=== PATIENT | female | born 1970 | race Caucasian/White ===

== ENCOUNTER 2017-09-15 05:27 | Emergency (ER) | payer BC ==
[2017-09-15 06:37] LABS: A TYPE INFLUENZA AG NEGATIVE (NEGATIVE); B INFLUENZA AG NEGATIVE (NEGATIVE)
[2017-09-15 06:43] LABS: HEMATOCRIT 40.1 % (36.0-47.0); HEMOGLOBIN 13.7 g/dL (12.0-15.5); MEAN CORPUSCULAR HEMOGLOBIN 29.2 pg (27.0-33.4); MEAN CORPUSCULAR HGB CONC 34.3 g/dL (32.0-36.0); MEAN CORPUSCULAR VOLUME 85 fl (80-97); PLATELET COUNT 153 10^3/uL (150-450); RED BLOOD COUNT 4.71 10^6/uL (3.72-5.28); RED CELL DISTRIBUTION WIDTH 12.7 % (11.5-14.0); WHITE BLOOD COUNT 9.5 10^3/uL (4.0-10.5)
[2017-09-15 06:58] LABS: ALANINE AMINOTRANSFERASE 48 U/L (9-52); ALKALINE PHOSPHATASE 106 U/L (38-126); ANION GAP 10 (5-19); ASPARTATE AMINO TRANSFERASE 31 U/L (14-36); BILIRUBIN,DIRECT 0.2 mg/dL (0.0-0.4); BILIRUBIN,TOTAL 0.2 mg/dL (0.2-1.3); BLOOD UREA NITROGEN 17 mg/dL (7-20); CALCIUM 9.7 mg/dL (8.4-10.2); CARBON DIOXIDE 23 mmol/L (22-30); CHLORIDE 102 mmol/L (98-107); GLUCOSE 274 mg/dL (75-110); SODIUM 135.2 mmol/L (137-145); TOTAL PROTEIN 6.9 g/dL (6.3-8.2)
[2017-09-15 07:03] LABS: ABSOLUTE LYMPHOCYTES# (MANUAL) 0.5 10^3/uL (0.5-4.7); ABSOLUTE MONOCYTES # (MANUAL) 0.6 10^3/uL (0.1-1.4); ABSOLUTE NEUTROPHILS# (MANUAL) 8.4 10^3/uL (1.7-8.2); BAND NEUTROPHILS % (MANUAL) 1 % (3-5); BASOPHILS % (MANUAL) 0 % (0-2); EOSINOPHILS % (MANUAL) 1 % (0-6); LYMPHOCYTES % (MANUAL) 5 % (13-45); MONOCYTES % (MANUAL) 6 % (3-13); SEGMENTED NEUTROPHILS % (MAN) 87 % (42-78); TOTAL CELLS COUNTED 100
[2017-09-15 07:04] LABS: RBC MORPHOLOGY COMMENT NORMO-CYTIC/CHROMIC
[2017-09-15] MEDS ORDERED: ACETAMINOPHEN 325 MG TABLET PO ONE (07:04)
[2017-09-15 07:05] LABS: PLATELET COMMENT ADEQUATE
--- NOTE | 2017-09-15 07:08 | ER Document Report ---
ED General - General Chief Complaint: Flu Symptoms Stated Complaint: FLU LIKE SYMPTOMS Time Seen by Provider: 09/15/17 06:50 Mode of Arrival: Ambulatory Information source: Patient TRAVEL OUTSIDE OF THE [place] IN LAST 30 DAYS: No - HPI Notes: Patient is a 46-year-old insulin-dependent diabetic presents emergency department with report of cough congestion which came on last evening nonproductive with associated fever. The patient denies any nausea, vomiting, diarrhea, neck stiffness. She reports generalized myalgias and mild headache. No skin rash or breakdown. Patient has not checked her blood sugar in several days. Patient does report some exposures to others with similar symptoms at work. - Related Data Allergies/Adverse Reactions: No Known Allergies Allergy (Verified 09/15/17 05:32) Past Medical History - General Information source: Patient - Social History Smoking Status: Current Every Day Smoker Chew tobacco use (# tins/day): No Frequency of alcohol use: None Drug Abuse: None Family History: None Patient has suicidal ideation: No Patient has homicidal ideation: No - Past Medical History Cardiac Medical History: Reports: Hx Hypercholesterolemia, Hx Hypertension Denies: Hx Congestive Heart Failure, Hx Heart Attack Pulmonary Medical History: Denies: Hx Tuberculosis Endocrine Medical History: Reports: Hx Diabetes Mellitus Type 2, Hx Hypothyroidism. Denies: Hx Graves' Disease, Hx Hyperthyroidism Renal/ Medical History: Denies: Hx Ovarian Cysts, Hx Peritoneal Dialysis, Hx Pelvic Inflammatory Disease Malignancy Medical History: Reports: Hx Cervical Cancer - precancerious cells removed. Denies: Hx Breast Cancer, Hx Ovarian Cancer GI Medical History: Reports: Hx Gastroesophageal Reflux Disease. Denies: Hx Crohn's Disease, Hx Hiatal Hernia, Hx Irritable Bowel, Hx Liver Failure, Hx Pancreatitis, Hx Ulcer Past Surgical History: Reports: Hx Cholecystectomy, Hx Gynecologic Surgery. Denies: Hx Colostomy, Hx Pacemaker - Immunizations Immunizations up to date: Yes Hx Diphtheria, Pertussis, Tetanus Vaccination: Yes Review of Systems - Review of Systems Notes: REVIEW OF SYSTEMS: CONSTITUTIONAL : No weight loss. EENT: Denies eye, ear, throat, or mouth pain or symptoms. Reports nasal congestion. Denies throat, tongue, or mouth swelling or difficulty swallowing. CARDIOVASCULAR: Denies chest pain. Denies palpitations or racing or irregular heart beat. Denies ankle edema. RESPIRATORY: Denies shortness of breath, difficulty breathing, or wheezing. GASTROINTESTINAL: Denies abdominal pain or distention. Denies nausea, vomiting , or diarrhea. Denies blood in vomitus, stools, or per rectum. Denies black, tarry stools. Denies constipation. GENITOURINARY: Denies difficulty urinating, painful urination, burning, frequency, blood in urine, or discharge. FEMALE GENITOURINARY: Denies vaginal bleeding, heavy or abnormal periods, irregular periods. Denies vaginal discharge or odor. MUSCULOSKELETAL: Denies back or neck pain or stiffness. Denies joint pain or swelling. SKIN: Denies rash, lesions or sores. HEMATOLOGIC : Denies easy bruising or bleeding. LYMPHATIC: Denies swollen, enlarged glands. NEUROLOGICAL: Denies confusion or altered mental status. Denies passing out or loss of consciousness. Denies dizziness or lightheadedness. Denies headache. Denies weakness or paralysis or loss of use of either side. Denies problems with gait or speech. Denies sensory loss, numbness, or tingling. Denies seizures. PSYCHIATRIC: Denies anxiety or stress. Denies depression, suicidal ideation, or homicidal ideation. ALL OTHER SYSTEMS REVIEWED AND NEGATIVE. Dictation was performed using [employer] voice recognition software Physical Exam - Vital signs Vitals: Temp Pulse Resp BP Pulse Ox 100.4 F 135 H 20 122/77 95 09/15/17 05:32 09/15/17 05:32 09/15/17 05:32 09/15/17 05:32 09/15/17 05:32 - Notes Notes: PHYSICAL EXAMINATION: GENERAL: Well-appearing, well-nourished and in no acute distress. HEAD: Atraumatic, normocephalic. EYES: Pupils equal round and reactive to light, extraocular movements intact, conjunctiva are normal. ENT: Nares patent with mild coryza. oropharynx clear without exudates. Moist mucous membranes. NECK: Normal range of motion, supple without lymphadenopathy LUNGS: Breath sounds clear to auscultation bilaterally and equal. No wheezes rales or rhonchi. HEART: Tachycardic rate regular of 115 with regular rhythm without murmurs, gallop or rub. ABDOMEN: Soft, nontender, nondistended abdomen. No guarding, no rebound. No masses appreciated. Female : deferred Musculoskeletal: Normal range of motion, no pitting or edema. No cyanosis. NEUROLOGICAL: Cranial nerves grossly intact. Normal speech, normal gait. Normal sensory, motor exams PSYCH: Normal mood, normal affect. SKIN: Warm, Dry, normal turgor, no rashes or lesions noted. Course - Re-evaluation Re-evalutation: 09/15/17 08:45 Patient was feeling better. Lab work showed no significant abnormality there was only mild hyperglycemia with blood sugar 274, but patient had no nausea or vomiting. No clinical suggestion for pneumonia and flu test is negative. Patient counseled about quitting smoking. Will place patient on Zithromax given possibility for bacterial etiology and progression to bronchitis given the smoking history. - Vital Signs Vital signs: Temp Pulse Resp BP Pulse Ox 100.4 F 135 H 20 122/77 95 09/15/17 05:32 09/15/17 05:32 09/15/17 05:32 09/15/17 05:32 09/15/17 05:32 - Laboratory Result Diagrams: 09/15/17 06:20 09/15/17 06:20 Laboratory results interpreted by me: 09/15/17 09/15/17 06:20 06:20 Seg Neuts % (Manual) 87 H Band Neutrophils % 1 L Lymphocytes % (Manual) 5 L Abs Neuts (Manual) 8.4 H Sodium 135.2 L Glucose 274 H Discharge - Discharge Clinical Impression: Bronchitis Fever Qualifiers: Fever type: unspecified Qualified Code(s): R50.9 - Fever, unspecified Condition: Stable Disposition: HOME, SELF-CARE Instructions: Fever ([facility]), Bronchitis ([facility]), Stop Smoking ([facility]) Additional Instructions: Drink plenty of fluids. Return to the emergency department case of high fever, difficulty breathing. Watch your blood sugars closely. Prescriptions: Azithromycin [Zithromax 250 mg Tablet] 250 mg PO ASDIR PRN #6 tablet PRN Reason: Guaifenesin/Pseudoephedrne HCl [Mucinex D ER Tablet] 1 each PO BIDP PRN #20 tab.er.12h PRN Reason: Forms: Return to Work
[2017-09-15 09:02] VITALS: BP 109/66
== END 2017-09-15 09:05 | disposition home or self-care (01) ==
LOC: ER 05:27
DX: J40 Bronchitis, not specified as acute or chronic (principal); E11.65 Type 2 diabetes mellitus with hyperglycemia; Z79.4 Long term (current) use of insulin; R05 Cough; R50.9 Fever, unspecified; M79.1 Myalgia; R51 Headache; F17.200 Nicotine dependence, unspecified, uncomplicated; I10 Essential (primary) hypertension; R00.0 Tachycardia, unspecified
CPT/HCPCS: 36415; 80053; 85025; 87804; 99284

== ENCOUNTER 2017-10-24 09:38 | Observation (INO) | payer BC ==
[2017-10-24 12:05] LABS: ABSOLUTE BASOPHILS # (AUTO) 0.1 10^3/uL (0.0-0.2); ABSOLUTE EOSINOPHILS # (AUTO) 0.2 10^3/uL (0.0-0.6); ABSOLUTE LYMPHOCYTES (AUTO) 2.8 10^3/uL (0.5-4.7); ABSOLUTE MONOCYTES (AUTO) 1.2 10^3/uL (0.1-1.4); ABSOLUTE NEUT (AUTO) 7.2 10^3/uL (1.7-8.2); BASOPHILS % (AUTO) 1.3 % (0-2); HEMATOCRIT 44.4 % (36.0-47.0); HEMOGLOBIN 15.2 g/dL (12.0-15.5); MEAN CORPUSCULAR HEMOGLOBIN 28.5 pg (27.0-33.4); MEAN CORPUSCULAR HGB CONC 34.3 g/dL (32.0-36.0); MEAN CORPUSCULAR VOLUME 83 fl (80-97); PLATELET COUNT 149 10^3/uL (150-450); RED BLOOD COUNT 5.34 10^6/uL (3.72-5.28); RED CELL DISTRIBUTION WIDTH 12.9 % (11.5-14.0); SEGMENTED NEUTROPHILS % (AUTO) 62.7 % (42-78); TOTAL CELLS COUNTED % (AUTO) 100 %; WHITE BLOOD COUNT 11.6 10^3/uL (4.0-10.5)
[2017-10-24 12:23] LABS: ANION GAP 9 (5-19); BLOOD UREA NITROGEN 11 mg/dL (7-20); CARBON DIOXIDE 24 mmol/L (22-30); CHLORIDE 104 mmol/L (98-107); GLUCOSE 210 mg/dL (75-110); POTASSIUM 3.6 mmol/L (3.6-5.0); SODIUM 137.3 mmol/L (137-145)
[2017-10-24 12:40] LABS: CREATINE KINASE MB < 0.22 ng/mL (<4.55); TROPONIN I < 0.012 ng/mL
--- NOTE | 2017-10-24 12:48 | RADIOLOGY REPORT (SQ) ---
EXAM DESCRIPTION: CHEST PA/LAT COMPLETED DATE/TIME: 10/24/2017 12:36 pm REASON FOR STUDY: chest pain COMPARISON: 08/04/2015. EXAM PARAMETERS: NUMBER OF VIEWS: two views TECHNIQUE: Digital Frontal and Lateral radiographic views of the chest acquired. RADIATION DOSE: NA LIMITATIONS: none FINDINGS: LUNGS AND PLEURA: No opacities, masses or pneumothorax. No pleural effusion. MEDIASTINUM AND HILAR STRUCTURES: No masses or contour abnormalities. HEART AND VASCULAR STRUCTURES: Heart normal size. No evidence for failure. BONES: No acute findings. HARDWARE: None in the chest. OTHER: No other significant finding. IMPRESSION: NO SIGNIFICANT RADIOGRAPHIC FINDING IN THE CHEST. TECHNICAL DOCUMENTATION: JOB ID: [id number] [employer]- All Rights Reserved Reading location - IP/workstation name: [facility]-[email or web address]
[2017-10-24] MEDS ORDERED: ASPIRIN 81 MG TABLET, ENT COATED PO ONE (14:00)
[2017-10-24] MEDS ORDERED: DEXTROSE 40% GEL 15 GM TUBE X 2 PO PRN (14:27)
[2017-10-24] MEDS ORDERED: DEXTROSE 50%-WATER SYRINGE 25 GM/50 ML DOSE IV PRN (14:27)
[2017-10-24] MEDS ORDERED: DEXTROSE 50%-WATER SYRINGE 12.5 GM/25 ML DOSE IV PRN (14:27)
[2017-10-24] MEDS ORDERED: GLUCAGON,HUMAN RECOMB 1 MG INJ IM PRN (14:27)
[2017-10-24] MEDS ORDERED: DEXTROSE 40% GEL 15 GM TUBE PO PRN (14:27)
[2017-10-24] MEDS ORDERED: NICOTINE 21 MG/24 HR PATCH.TD24 TD ONE (15:00)
[2017-10-24] MEDS: INSULIN LISPRO 100 UNIT/ML 3 ML VIAL SUBCUT PRN ×2 (15:22→18:50)
[2017-10-24] MEDS ORDERED: (PENDING PHARMACY ID) (Tapentadol Hcl [Nucynta] 75 MG) PO PRN (17:29)
[2017-10-24] MEDS ORDERED: CYANOCOBALAMIN (VITAMIN B-12) INJ 1000 MCG/1 ML VIAL IM SCH (17:45)
[2017-10-24] MEDS ORDERED: IBUPROFEN 800 MG TABLET PO PRN (18:05)
[2017-10-24 20:35] LABS: CREATINE KINASE MB < 0.22 ng/mL (<4.55); TROPONIN I < 0.012 ng/mL
--- NOTE | 2017-10-24 20:50 | PDOC H&P ---
History of Present Illness Admission Date/PCP: 10/24/17 09:38 ASHLEE HUFF MD History of Present Illness: JASE PETERSEN is a 46 year old female, She came to the office for evaluation of substernal chest pain of 2 days duration the pain is not provoked by activity and it is not relieved by rest the pain is atypical in character, it is not pressure it is not sharp it is nondescript. In the office a 12-lead EKG was done, it showed sinus rhythm there was no acute ST segment change to suggest acute [place] but because she has multiple risk factors for ischemic heart disease, type 2 diabetes, a smoker, hypertension, it was felt that the best plan of action would be to admit for observation and to rule out acute coronary syndrome. Past Medical History Cardiac Medical History: Reports: Hyperlipidema, Hypertension Endocrine Medical History: Reports: Diabetes Mellitus Type 2, Hypothyroidism Malignancy Medical History: Reports: Cervical Cancer - precancerious cells removed GI Medical History: Reports: Gastroesophageal Reflux Disease Past Surgical History Past Surgical History: Reports: Cholecystectomy Social History Smoking Status: Current Every Day Smoker Frequency of Alcohol Use: None Hx Recreational Drug Use: No Drugs: None Hx Prescription Drug Abuse: No Family History Family History: None Parental Family History Reviewed: Yes Children Family History Reviewed: Yes Sibling(s) Family History Reviewed.: Yes Medication/Allergy Home Medications: Cetirizine HCl [Zyrtec 10 mg Tablet] 1 tab PO DAILY 10/24/17 Cyanocobalamin (Vitamin B-12) [Vitamin B-12 Inj 1000 Mcg/1 ml Vial] 1,000 mcg IM .MONTHLY 10/24/17 Dulaglutide [Trulicity] 1.5 mg SQ MCKNIGHT@1000 10/24/17 Esomeprazole Magnesium [Nexium] 40 mg PO Q6AM 10/24/17 Gabapentin [Neurontin 300 mg Capsule] 300 mg PO Q8 10/24/17 Ibuprofen [Motrin 800 mg Tablet] 800 mg PO Q8HP PRN 10/24/17 Insulin Glargine,Hum.rec.anlog [Lantus Solostar] 50 unit SQ Q12 10/24/17 Levothyroxine Sodium [Synthroid 0.075 mg Tablet] 0.075 mg PO Q6AM 10/24/17 Lisinopril/Hydrochlorothiazide [Zestoretic 20-12.5 Mg Tablet] 2 each PO DAILY Metformin HCl [Glucophage] 1,000 mg PO BIDACBS 10/24/17 Pioglitazone HCl [Actos 15 mg Tablet] 1 tab PO QAM 10/24/17 Rosuvastatin Calcium [Crestor 10 mg Tablet] 10 mg PO QHS 10/24/17 Sitagliptin Phosphate [Januvia] 100 mg PO QAM 10/24/17 Tapentadol HCl [Nucynta] 75 mg PO Q6HP PRN 10/24/17 Allergies/Adverse Reactions: No Known Allergies Allergy (Verified 09/15/17 05:32) Review of Systems Constitutional: ABSENT: chills, fever(s), headache(s), weight gain, weight loss Eyes: ABSENT: visual disturbances Ears: ABSENT: hearing changes Cardiovascular: PRESENT: chest pain Respiratory: ABSENT: cough, hemoptysis Gastrointestinal: ABSENT: abdominal pain, constipation, diarrhea, hematemesis, hematochezia, nausea, vomiting Genitourinary: ABSENT: dysuria, hematuria Musculoskeletal: ABSENT: joint swelling Integumentary: ABSENT: rash, wounds Neurological: ABSENT: abnormal gait, abnormal speech, confusion, dizziness, focal weakness, syncope Psychiatric: ABSENT: anxiety, depression, homidical ideation, suicidal ideation Endocrine: ABSENT: cold intolerance, heat intolerance, menstrual abnormalities, polydipsia, polyuria Hematologic/Lymphatic: ABSENT: easy bleeding, easy bruising, lymphadenopathy Physical Exam Vital Signs: Temp Pulse Resp BP Pulse Ox 98.8 F 119 H 22 H 124/88 H 98 10/24/17 15:00 10/24/17 19:00 10/24/17 15:00 10/24/17 15:00 10/24/17 15:00 Intake & Output 10/23/17 10/24/17 10/25/17 06:59 06:59 06:59 Intake Total 200 Balance 200 Weight 92.4 kg General appearance: PRESENT: no acute distress, well-developed, well-nourished Head exam: PRESENT: atraumatic, normocephalic Eye exam: PRESENT: conjunctiva pink, EOMI, PERRLA Ear exam: PRESENT: normal external ear exam Mouth exam: PRESENT: moist, tongue midline Neck exam: PRESENT: full ROM Respiratory exam: PRESENT: clear to auscultation tyrone Cardiovascular exam: PRESENT: RRR, +S1, +S2 Pulses: PRESENT: normal dorsalis pedis pul, +2 pedal pulses bilateral Vascular exam: PRESENT: normal capillary refill GI/Abdominal exam: PRESENT: normal bowel sounds, soft Rectal exam: PRESENT: deferred Neurological exam: PRESENT: alert, awake, oriented to person, oriented to place , oriented to time, oriented to situation, CN II-XII grossly intact. ABSENT: motor sensory deficit Psychiatric exam: PRESENT: appropriate affect, normal mood Skin exam: PRESENT: dry, intact, warm. ABSENT: cyanosis, rash Results Laboratory Results: 10/24/17 11:48 10/24/17 11:48 10/24/17 10/24/17 10/24/17 11:48 11:48 11:48 WBC 11.6 H RBC 5.34 H Hgb 15.2 Hct 44.4 MCV 83 MCH 28.5 MCHC 34.3 RDW 12.9 Plt Count 149 L Seg Neutrophils % 62.7 Lymphocytes % 24.0 Monocytes % 10.0 Eosinophils % 2.0 Basophils % 1.3 Absolute Neutrophils 7.2 Absolute Lymphocytes 2.8 Absolute Monocytes 1.2 Absolute Eosinophils 0.2 Absolute Basophils 0.1 Sodium Potassium Chloride Carbon Dioxide Anion Gap BUN Creatinine Est GFR ( Amer) Est GFR (Non-Af Amer) Glucose Calcium TSH 1.37 Free T4 1.38 10/24/17 11:48 WBC RBC Hgb Hct MCV MCH MCHC RDW Plt Count Seg Neutrophils % Lymphocytes % Monocytes % Eosinophils % Basophils % Absolute Neutrophils Absolute Lymphocytes Absolute Monocytes Absolute Eosinophils Absolute Basophils Sodium 137.3 Potassium 3.6 Chloride 104 Carbon Dioxide 24 Anion Gap 9 BUN 11 Creatinine 0.59 Est GFR ( Amer) > 60 Est GFR (Non-Af Amer) > 60 Glucose 210 H Calcium 9.0 TSH Free T4 10/24/17 10/24/17 10/24/17 11:48 11:48 19:40 Creatine Kinase 28 L 41 CK-MB (CK-2) < 0.22 Troponin I < 0.012 10/24/17 19:40 Creatine Kinase CK-MB (CK-2) < 0.22 Troponin I < 0.012 Impressions: Chest X-Ray 10/24/17 00:00 IMPRESSION: NO SIGNIFICANT RADIOGRAPHIC FINDING IN THE CHEST. Assessment & Plan - Diagnosis (1) Chest pain Qualifiers: Chest pain type: unspecified Qualified Code(s): R07.9 - Chest pain, unspecified Is this a current diagnosis for this admission?: Yes Plan: she is admitted for observation and management (2) Type 2 diabetes mellitus Qualifiers: Diabetes mellitus complication status: without complication Qualified Code( s): E11.9 - Type 2 diabetes mellitus without complications
[2017-10-24] MEDS ORDERED: PRAMIPEXOLE DI-HCL 0.25 MG TABLET PO SCH (22:00)
[2017-10-24] MEDS ORDERED: ATORVASTATIN CALCIUM 20 MG TABLET PO SCH (22:00)
[2017-10-24] MEDS ORDERED: INSULIN GLARGINE,HUM.REC.ANLOG 300 UNIT/3 ML INSULN.PEN SUBCUT SCH (22:00)
[2017-10-24] MEDS: GABAPENTIN 300 MG CAPSULE PO SCH (22:04)
[2017-10-24] MEDS: INSULIN GLARGINE,HUM.REC.ANLOG 1,000 UNIT/10 ML UNIT SUBCUT SCH (22:04)
[2017-10-24] MEDS: TAPENTADOL HCL 75 MG PO PRN (22:04)
--- NOTE | 2017-10-24 22:07 | EKG REPORT ---
SEVERITY:- BORDERLINE ECG - SINUS RHYTHM PROBABLE LEFT ATRIAL ABNORMALITY : Confirmed by: Farzana Siddiqi 24-Oct-2017 22:06:19
[2017-10-25 00:23] LABS: APPEARANCE,URINE CLOUDY; BILIRUBIN,URINE NEGATIVE (NEGATIVE); COLOR,URINE AMBER; GLUCOSE, URINE >=500 mg/dL (NEGATIVE); KETONES,URINE NEGATIVE (NEGATIVE); LEUKOCYTE ESTERASE,URINE NEGATIVE (NEGATIVE); NITRITE,URINE NEGATIVE (NEGATIVE); PROTEIN,URINE 30 mg/dL (NEGATIVE); URINE SPECIFIC GRAVITY 1.035; UROBILINOGEN,URINE NEGATIVE mg/dL (<2.0)
[2017-10-25 04:26] LABS: CREATINE KINASE MB < 0.22 ng/mL (<4.55); TROPONIN I < 0.012 ng/mL
[2017-10-25] MEDS: GABAPENTIN 300 MG CAPSULE PO SCH ×2 (05:30→14:29)
[2017-10-25] MEDS ORDERED: LEVOTHYROXINE SODIUM 0.075 MG TABLET PO SCH (06:00)
[2017-10-25] MEDS ORDERED: LANSOPRAZOLE 30 MG TAB.RAP.DR PO SCH (06:00)
[2017-10-25] MEDS ORDERED: SITAGLIPTIN PHOSPHATE 50 MG TABLET PO SCH (08:00)
[2017-10-25] MEDS ORDERED: PIOGLITAZONE HCL 15 MG TABLET PO SCH (08:00)
[2017-10-25] MEDS ORDERED: HYDROCHLOROTHIAZIDE 25 MG TABLET PO SCH (10:00)
[2017-10-25] MEDS ORDERED: LISINOPRIL PO SCH (10:00)
[2017-10-25] MEDS ORDERED: CETIRIZINE 10 MG TABLET PO SCH (10:00)
[2017-10-25] MEDS ORDERED: NICOTINE 21 MG/24 HR PATCH.TD24 TD SCH (10:00)
[2017-10-25] MEDS ORDERED: [UNRECOGNIZED DRUG - OTHER] PO SCH (10:00)
[2017-10-25] MEDS ORDERED: HYDROCHLOROTHIAZIDE PO SCH (10:00)
[2017-10-25] MEDS ORDERED: ASPIRIN 81 MG TABLET, ENT COATED PO SCH (10:00)
[2017-10-25] MEDS ORDERED: LISINOPRIL 10 MG TABLET PO SCH (10:00)
[2017-10-25] MEDS: TAPENTADOL HCL 75 MG PO PRN (10:28)
[2017-10-25] MEDS: INSULIN GLARGINE,HUM.REC.ANLOG 1,000 UNIT/10 ML UNIT SUBCUT SCH (10:30)
[2017-10-25] MEDS: INSULIN LISPRO 100 UNIT/ML 3 ML VIAL SUBCUT PRN (10:38)
[2017-10-25] MEDS: METFORMIN HCL 500 MG TABLET PO SCH ×2 (10:40→16:15)
[2017-10-25] MEDS ORDERED: SITAGLIPTIN PHOSPHATE 50 MG TABLET PO ONE (11:15)
--- NOTE | 2017-10-25 13:43 | DRAGON STRESS TEST REPORT ---
INTRAVENOUS LEXISCAN CARDIOLITE STRESS TEST USING SINGLE PHOTON EMMISION COMPUTERIZED TOMOGRAPHIC. DATE OF PROCEDURE: October 25, 2017, INDICATION : Chest pain CARDIAC RISK FACTORS: Diabetes, hypertension, dyslipidemia, tobacco abuse RESTING EKG: Sinus rhythm without any baseline ST-T wave changes STRESS EKG: No significant changes noted with LexiScan bolus REASON FOR TERMINATION: Protocol. PROCEDURE REPORT: Baseline heart rate 88 beats per minute with blood pressure of 117//69. Patient had no significant complaints. Heart rate at 2 minutes post bolus 98 with a blood pressure of 124/67. 3 minutes post bolus heart rate 96 with blood pressure of 121/68. No significant EKG changes were noted. Patient had no significant complaints during the procedure or postprocedure. Patient injected with Aminophyllin 75 mg at 3 minutes or later after Lexiscan bolus. CONCLUSIONS: Normal EKG and hemodynamic response to IV LexiScan. NUCLEAR DATA: At rest the patient was given 14.06 millicuries of technetium 99 sestamibi injected intravenously. As per protocol rest gated SPECT images were obtained. On day of stress test, the patient was given intravenous LexiScan at a dose of 0.4 mg in 5 mL intravenously, followed by flush with normal saline. Subsequently the stress dose of 40.0 millicuries of technetium 99 sestamibi was injected intravenously. As per protocol stress gated images were obtained. NUCLEAR INTERPRETATION: Both raw and processed data were used for interpretation. Visual, qualitative, computer-generated quantitative data was used. There was good myocardial uptake of technetium compound. Motion artifact and soft tissue attenuations were noted. Increased visceral uptake was noted. No definitive areas of transient perfusion defect noted, No definitive areas of fixed perfusion defect or scars noted. EKG gated imaging showed LV EF at 46 %, rest and stress gated EF similar visually. T. I D. ratio was 1.07. Lung heart ratio noted to be within normal limits 0.31. No significant extracardiac and abnormal radiotracer activities were noted. RV free wall uptake was noted to be WNL. IMPRESSION: Also refer to comments under nuclear interpretation. Also test results needs to be interpreted in the context of pretest probability. 1. No definitive areas of transient perfusion defect noted. 2. There is no definitive scintigraphic evidence of myocardial infarction/scar. 3. EKG gated imaging shows left ventricular ejection fraction of approx. 46 %. 4. Clinical correlation requested as occasionally single vessel disease or balanced ischemia could be missed. In approximately 10% of the cases Lexiscan may not cause adequate vasodilatory stress. RECOMMENDATIONS: Aggressive risk factor modification and medical management. Further evaluation may be needed if continued symptoms or other high risk indicators are noted on clinical evaluation. Close cardiology follow-up is also recommended. Clinical correlation with echocardiogram derived ejection fraction. Inability to exercise by itself can lead to increased cardiovascular event risks. Consider cardiology consultation and or follow-up if clinically indicated. I am available for cardiology evaluation and consultation if requested by the family and consumer education teacher, unless patient already has a wedding cake designer. SUSAN
[2017-10-25] MEDS ORDERED: REGADENOSON INJ 0.4 MG/5 ML DISP.SYRIN IV ONE (14:12)
[2017-10-25] MEDS ORDERED: AMINOPHYLLINE INJ/PF 250 MG/10 ML SDV IV ONE (14:12)
--- NOTE | 2017-10-25 18:06 | PDOC DISCHARGE SUMMARY ---
General - Admit/Disc Date/PCP Admission Date/Primary Care Provider: 10/24/17 09:38 ASHLEE HUFF MD Discharge Date: 10/25/17 - Discharge Diagnosis (1) Chest pain Is this a current diagnosis for this admission?: Yes (2) Type 2 diabetes mellitus Is this a current diagnosis for this admission?: Yes (3) Cardiomyopathy Is this a current diagnosis for this admission?: Yes - Additional Information Discharge Activity: Activity As Tolerated Prescriptions: Carvedilol 3.125 mg PO BID #60 tablet Home Medications: Cetirizine HCl [Zyrtec 10 mg Tablet] 1 tab PO DAILY 10/24/17 Cyanocobalamin (Vitamin B-12) [Vitamin B-12 Inj 1000 Mcg/1 ml Vial] 1,000 mcg IM .MONTHLY 10/24/17 Dulaglutide [Trulicity] 1.5 mg SQ MCKNIGHT@1000 10/24/17 Esomeprazole Magnesium [Nexium] 40 mg PO Q6AM 10/24/17 Gabapentin [Neurontin 300 mg Capsule] 300 mg PO Q8 10/24/17 Insulin Glargine,Hum.rec.anlog [Lantus Solostar] 50 unit SQ Q12 10/24/17 Levothyroxine Sodium [Synthroid 0.075 mg Tablet] 0.075 mg PO Q6AM 10/24/17 Lisinopril/Hydrochlorothiazide [Zestoretic 20-12.5 mg Tablet] 2 each PO DAILY Metformin HCl [Glucophage] 1,000 mg PO BIDACBS 10/24/17 Pioglitazone HCl [Actos 15 mg Tablet] 1 tab PO QAM 10/24/17 Pramipexole Di-HCl [Pramipexole Dihydrochloride] 0.25 mg PO QHS 10/24/17 Rosuvastatin Calcium [Crestor 10 mg Tablet] 10 mg PO QHS 10/24/17 Sitagliptin Phosphate [Januvia] 100 mg PO QAM 10/24/17 Tapentadol HCl [Nucynta] 75 mg PO Q6HP PRN 10/24/17 Carvedilol 3.125 mg PO BID #60 tablet 10/25/17 History of Present Illness History of Present Illness: JASE PETERSEN is a 46 year old female, She came to the office for evaluation of substernal chest pain of 2 days duration the pain is not provoked by activity and it is not relieved by rest the pain is atypical in character, it is not pressure it is not sharp it is nondescript. In the office a 12-lead EKG was done, it showed sinus rhythm there was no acute ST segment change to suggest acute [place] but because she has multiple risk factors for ischemic heart disease, type 2 diabetes, a smoker, hypertension, it was felt that the best plan of action would be to admit for observation and to rule out acute coronary syndrome. Hospital Course Hospital Course: Patient was admitted for the management of chest pain, Cardiolite stress test was done, it was negative for acute ischemia but the ejection fraction was 46%, suggestive of cardiomyopathy. She was again advised of the need for complete smoking cessation, she is started on beta-yolanda carvedilol, she will continue lisinopril. Physical Exam Vital Signs: Temp Pulse Resp BP Pulse Ox 98.7 F 88 18 129/81 H 98 10/25/17 12:23 10/25/17 14:00 10/25/17 12:23 10/25/17 12:23 10/25/17 12:23 Intake & Output 10/24/17 10/25/17 10/26/17 06:59 06:59 06:59 Intake Total 801 500 Balance 801 500 Weight 92.4 kg General appearance: PRESENT: no acute distress, well-developed, well-nourished Head exam: PRESENT: atraumatic, normocephalic Eye exam: PRESENT: conjunctiva pink, EOMI, PERRLA Ear exam: PRESENT: normal external ear exam Mouth exam: PRESENT: moist, tongue midline Neck exam: PRESENT: full ROM Respiratory exam: PRESENT: clear to auscultation tyrone Cardiovascular exam: PRESENT: RRR, +S1, +S2 Pulses: PRESENT: normal dorsalis pedis pul, +2 pedal pulses bilateral Vascular exam: PRESENT: normal capillary refill GI/Abdominal exam: PRESENT: normal bowel sounds, soft Rectal exam: PRESENT: deferred Neurological exam: PRESENT: alert, awake, oriented to person, oriented to place , oriented to time, oriented to situation, CN II-XII grossly intact Psychiatric exam: PRESENT: appropriate affect, normal mood Skin exam: PRESENT: dry, intact, warm Results Laboratory Results: 10/24/17 11:48 10/24/17 11:48 10/24/17 23:50 Urine Color IOANA Urine Appearance CLOUDY Urine pH 5.0 Ur Specific [place] 1.035 Urine Protein 30 H Urine Glucose (UA) >=500 H Urine Ketones NEGATIVE Urine Blood LARGE H Urine Nitrite NEGATIVE Ur Leukocyte Esterase NEGATIVE Urine WBC (Auto) 118 Urine RBC (Auto) >182 10/24/17 10/24/17 10/24/17 11:48 11:48 19:40 Creatine Kinase 28 L 41 CK-MB (CK-2) < 0.22 Troponin I < 0.012 10/24/17 10/25/17 10/25/17 19:40 03:36 03:36 Creatine Kinase 36 CK-MB (CK-2) < 0.22 < 0.22 Troponin I < 0.012 < 0.012 Impressions: Chest X-Ray 10/24/17 00:00 IMPRESSION: NO SIGNIFICANT RADIOGRAPHIC FINDING IN THE CHEST. Qualifiers - * PATEINT BEING DISCHARGED WITH ANY OF THE FOLLOWING DIAGNOSIS?: No
[2017-10-25 18:18] VITALS: BP 124/88
[2017-10-26] MEDS ORDERED: SITAGLIPTIN PHOSPHATE 50 MG TABLET PO SCH (08:00)
[2017-10-27] MEDS ORDERED: (PENDING PHARMACY ID) (Dulaglutide [Trulicity] 1.5 MG) SQ SCH (10:00)
== END 2017-10-25 18:30 | disposition home or self-care (01) ==
LOC: 3S 09:38
PROVIDERS: ADMIT Internal Medicine; ATTEND Internal Medicine
DX: R07.2 Precordial pain (principal); E11.9 Type 2 diabetes mellitus without complications; I42.9 Cardiomyopathy, unspecified; F17.200 Nicotine dependence, unspecified, uncomplicated; E03.9 Hypothyroidism, unspecified; K21.9 Gastro-esophageal reflux disease without esophagitis; E78.5 Hyperlipidemia, unspecified; I10 Essential (primary) hypertension; Z79.899 Other long term (current) drug therapy; Z90.49 Acquired absence of other specified parts of digestive tract; Z85.41 Personal history of malignant neoplasm of cervix uteri; Z79.4 Long term (current) use of insulin
CPT/HCPCS: 36415 ×2; 84439; 82553 ×2; 82962 ×2; 82550 ×2; 84443; 85025; 80048; 81001; 84484 ×2; 83036; 85379; 93017; 71046; 78452; 93005; 93010; A9500; J2785; J1815 ×4; J3490 ×2; J0280; Q9969; G0378; G0379

== ENCOUNTER 2018-10-08 07:33 | Emergency (ER) | payer BC ==
[2018-10-08] MEDS ORDERED: ASPIRIN 81 MG TABLET, CHEWABLE PO ONE (08:59)
[2018-10-08 09:32] LABS: ABSOLUTE BASOPHILS # (AUTO) 0.1 10^3/uL (0.0-0.2); ABSOLUTE EOSINOPHILS # (AUTO) 0.2 10^3/uL (0.0-0.6); ABSOLUTE LYMPHOCYTES (AUTO) 2.3 10^3/uL (0.5-4.7); ABSOLUTE MONOCYTES (AUTO) 0.8 10^3/uL (0.1-1.4); BASOPHILS % (AUTO) 0.5 % (0-2); EOSINOPHILS % (AUTO) 1.6 % (0-6); HEMATOCRIT 44.7 % (36.0-47.0); HEMOGLOBIN 15.5 g/dL (12.0-15.5); LYMPHOCYTES % (AUTO) 17.2 % (13-45); MEAN CORPUSCULAR HEMOGLOBIN 30.2 pg (27.0-33.4); MEAN CORPUSCULAR HGB CONC 34.8 g/dL (32.0-36.0); MEAN CORPUSCULAR VOLUME 87 fl (80-97); MONOCYTES % (AUTO) 5.9 % (3-13); PLATELET COUNT 171 10^3/uL (150-450); RED BLOOD COUNT 5.15 10^6/uL (3.72-5.28); RED CELL DISTRIBUTION WIDTH 13.1 % (11.5-14.0); SEGMENTED NEUTROPHILS % (AUTO) 74.8 % (42-78); TOTAL CELLS COUNTED % (AUTO) 100 %; WHITE BLOOD COUNT 13.4 10^3/uL (4.0-10.5)
[2018-10-08 10:03] LABS: ALANINE AMINOTRANSFERASE 18 U/L (9-52); ALBUMIN 4.5 g/dL (3.5-5.0); ALKALINE PHOSPHATASE 104 U/L (38-126); ANION GAP 12 (5-19); ASPARTATE AMINO TRANSFERASE 31 U/L (14-36); BILIRUBIN,DIRECT 0.4 mg/dL (0.0-0.4); BILIRUBIN,TOTAL 0.7 mg/dL (0.2-1.3); BLOOD UREA NITROGEN 11 mg/dL (7-20); CALCIUM 9.8 mg/dL (8.4-10.2); CARBON DIOXIDE 24 mmol/L (22-30); CHLORIDE 99 mmol/L (98-107); CREATINE KINASE 39 U/L (30-135); POTASSIUM 4.4 mmol/L (3.6-5.0); SODIUM 135.3 mmol/L (137-145); TOTAL PROTEIN 7.9 g/dL (6.3-8.2)
[2018-10-08 10:08] LABS: GLUCOSE 465 mg/dL (75-110)
--- NOTE | 2018-10-08 10:13 | RADIOLOGY REPORT (SQ) ---
EXAM DESCRIPTION: CHEST SINGLE VIEW COMPLETED DATE/TIME: 10/08/2018 9:36 am REASON FOR STUDY: chest pain COMPARISON: Two-view chest 10/24/2017 EXAM PARAMETERS: NUMBER OF VIEWS: One view. TECHNIQUE: Single frontal radiographic view of the chest acquired. RADIATION DOSE: NA LIMITATIONS: None. FINDINGS: LUNGS AND PLEURA: No opacities, masses or pneumothorax. No pleural effusion. MEDIASTINUM AND HILAR STRUCTURES: No masses. Contour normal. HEART AND VASCULAR STRUCTURES: Heart normal in size. Normal vasculature. BONES: No acute findings. HARDWARE: None in the chest. OTHER: No other significant finding. IMPRESSION: NO ACUTE RADIOGRAPHIC FINDING IN THE CHEST. TECHNICAL DOCUMENTATION: JOB ID: [id number] [employer]- All Rights Reserved Reading location - IP/workstation name: [email or web address]
[2018-10-08] MEDS ORDERED: MAG HYDROX/AL HYDROX/SIMETH SUSP 30 ML UDCUP PO ONE (10:17)
[2018-10-08] MEDS ORDERED: LIDOCAINE 2% VISCOUS SOLN 20 ML UDCUP PO ONE (10:17)
[2018-10-08] MEDS ORDERED: METOCLOPRAMIDE HCL ORAL SOLN 10 MG/10 ML UDCUP PO ONE (10:17)
[2018-10-08 10:26] LABS: CREATINE KINASE MB < 0.22 ng/mL (<4.55); TROPONIN I < 0.012 ng/mL
[2018-10-08 10:36] LABS: LIPASE 114.5 U/L (23-300)
[2018-10-08] MEDS ORDERED: NORMAL SALINE 1000 ML 1,000 ML IV ONE (11:04)
--- NOTE | 2018-10-08 11:42 | ER Document Report ---
ED General - General Chief Complaint: Chest Pain Stated Complaint: CHEST PAIN Time Seen by Provider: 10/08/18 09:16 Primary Care Provider: ASHLEE HUFF MD [Primary Care Provider] - Follow up in 3-5 days TRAVEL OUTSIDE OF THE [place] IN LAST 30 DAYS: No - HPI Patient complains to provider of: Chest pain Notes: Patient coming in for evaluation of chest pain ongoing since last night around 11 10:00. Patient states she had a barbecue sandwich from [facility] developed chest pain to her chest burning sensation. Patient states at this time improvement of the pain. Patient denies any fever chills nausea vomiting diarrhea has history of hypertension diabetes. Patient admits that she is a poorly controlled diabetic. Patient otherwise looks to be in no obvious distress upon my evaluation A brief review of the patient's past medical records available in [employer] was performed - Related Data Allergies/Adverse Reactions: No Known Allergies Allergy (Verified 10/08/18 07:35) Past Medical History - Social History Smoking Status: Current Every Day Smoker Chew tobacco use (# tins/day): No Frequency of alcohol use: None Drug Abuse: None Family History: None Patient has suicidal ideation: No Patient has homicidal ideation: No - Past Medical History Cardiac Medical History: Reports: Hx Hypercholesterolemia, Hx Hypertension Endocrine Medical History: Reports: Hx Diabetes Mellitus Type 2, Hx Hypothyroidism. Denies: Hx Graves' Disease Renal/ Medical History: Denies: Hx Ovarian Cysts, Hx Peritoneal Dialysis, Hx Pelvic Inflammatory Disease Malignancy Medical History: Reports: Hx Cervical Cancer - precancerious cells removed GI Medical History: Reports: Hx Gastroesophageal Reflux Disease. Denies: Hx Irritable Bowel, Hx Liver Failure, Hx Pancreatitis, Hx Ulcer Past Surgical History: Reports: Hx Cholecystectomy, Hx Gynecologic Surgery - Immunizations Immunizations up to date: Yes Hx Diphtheria, Pertussis, Tetanus Vaccination: Yes Review of Systems - Review of Systems Constitutional: No symptoms reported EENT: No symptoms reported Cardiovascular: Chest pain Respiratory: No symptoms reported Gastrointestinal: No symptoms reported Genitourinary: No symptoms reported Female Genitourinary: No symptoms reported Musculoskeletal: No symptoms reported Skin: No symptoms reported Hematologic/Lymphatic: No symptoms reported Neurological/Psychological: No symptoms reported -: Yes All other systems reviewed and negative Physical Exam - Vital signs Vitals: Temp Pulse Resp BP Pulse Ox 98.8 F 86 16 168/90 H 98 10/08/18 07:38 10/08/18 07:38 10/08/18 07:38 10/08/18 07:38 10/08/18 07:38 Interpretation: Normal - General General appearance: Appears well, Alert - HEENT Head: Normocephalic, Atraumatic Eyes: Normal Pupils: PERRL - Respiratory Respiratory status: No respiratory distress Chest status: Nontender Breath sounds: Normal Chest palpation: Normal - Cardiovascular Rhythm: Regular Heart sounds: Normal auscultation Murmur: No - Abdominal Inspection: Normal Distension: No distension Bowel sounds: Normal Tenderness: Nontender Organomegaly: No organomegaly - Back Back: Normal, Nontender - Extremities General upper extremity: Normal inspection, Nontender, Normal color, Normal ROM, Normal temperature General lower extremity: Normal inspection, Nontender, Normal color, Normal ROM, Normal temperature, Normal weight bearing. No: Kayli's sign - Neurological Neuro grossly intact: Yes Cognition: Normal Orientation: AAOx4 [place] Coma Scale Eye Opening: Spontaneous [place]a Coma Scale Verbal: Oriented [place] Coma Scale Motor: Obeys Commands [place] Coma Scale Total: 15 Speech: Normal Motor strength normal: LUE, RUE, LLE, RLE Sensory: Normal - Psychological Associated symptoms: Normal affect, Normal mood - Skin Skin Temperature: Warm Skin Moisture: Dry Skin Color: Normal Course - Re-evaluation Re-evalutation: 10/08/18 14:25 Laboratory studies not show any signs of cardiac ischemia EKG is otherwise negative for signs of cardiac ischemia. Patient's blood sugar elevated did spend to the patient that she would need better control her diabetes no signs of DKA at this time. Will advance as reflux from her dietary choices. Patient was encouraged to continue to take her omeprazole return to ER symptoms worsen The patient has atypical chest pain as the patient's chest pain is not suggestive of pulmonary embolus, cardiac ischemia, aortic dissection, or other serious etiology. Given the extremely low risk of these diagnoses further testing and evaluation for these possibilities does not appear to be indicated at this time. The patient has been instructed to return if the symptoms worsen or change in any way. - Vital Signs Vital signs: Temp Pulse Resp BP Pulse Ox 98.8 F 86 21 H 127/82 H 96 10/08/18 07:38 10/08/18 07:38 10/08/18 12:09 10/08/18 12:09 10/08/18 12:09 - Laboratory Result Diagrams: 10/08/18 09:00 10/08/18 09:00 Laboratory results interpreted by me: 10/08/18 10/08/18 09:00 09:00 WBC 13.4 H Absolute Neutrophils 10.0 H Sodium 135.3 L Glucose 465 H* Discharge - Discharge Clinical Impression: Hyperglycemia Chest pain Qualifiers: Chest pain type: unspecified Qualified Code(s): R07.9 - Chest pain, unspecified Type 2 diabetes mellitus Qualifiers: Diabetes mellitus residential insulin use: with watermelon inspector use Diabetes mellitus complication status: with unspecified complications Qualified Code(s): E11.8 - Type 2 diabetes mellitus with unspecified complications Condition: Good Disposition: HOME, SELF-CARE Instructions: Chest Wall Pain ([facility]), Chest Pain of Unclear Cause ([facility]), Reflux Disease (GERD) ([facility]) Additional Instructions: Laboratory studies today showed no critical pathology for your chest pain no signs of cardiac ischemia cardiac damage no signs of pneumonia your chest x-ray. The laboratory studies that showed a very elevated blood sugar. I highly recommend he consult with your primary care physician for further control of your sugars and your diabetes. I recommend taking Carafate for the pain that you experience a do believe is more likely due to underlying acid reflux or gastritis. Please continue your omeprazole at home. Prescriptions: Ondansetron [Zofran Odt 4 mg Tablet] 1 - 2 tab PO Q4H PRN #30 tab.rapdis PRN Reason: For Nausea/Vomiting Sucralfate [Carafate 1 gm Tablet] 1 gm PO ACHS #120 tablet Forms: Return to Work Referrals: ASHLEE HUFF MD [Primary Care Provider] - Follow up in 3-5 days
[2018-10-08 12:34] VITALS: BP 127/82
--- NOTE | 2018-10-08 13:07 | EKG REPORT ---
SEVERITY:- ABNORMAL ECG - SINUS RHYTHM NONSPECIFIC ST-T CHANGES- INFERIOR LEADS : Confirmed by: Willie Monzon MD 08-Oct-2018 13:06:21
== END 2018-10-08 12:34 | disposition home or self-care (01) ==
LOC: ER 07:33
DX: K21.9 Gastro-esophageal reflux disease without esophagitis (principal); Z79.899 Other long term (current) drug therapy; E11.65 Type 2 diabetes mellitus with hyperglycemia; R07.89 Other chest pain; I10 Essential (primary) hypertension; F17.200 Nicotine dependence, unspecified, uncomplicated
CPT/HCPCS: 93005; 99285; 96360; 36415; 82553; 82550; 83690; 85025; 80053; 84484; 71045; 93010; J3490; J7030

== ENCOUNTER 2019-05-25 10:54 | Observation (INO) | payer BC ==
--- NOTE | 2019-05-25 13:17 | EKG REPORT ---
SEVERITY:- BORDERLINE ECG - SINUS TACHYCARDIA PROBABLE LEFT ATRIAL ABNORMALITY NONSPECIFIC ST-T CHANGES- INFERIOR LEADS : Confirmed by: Willie Monzon MD 25-May-2019 13:16:59
[2019-05-25 13:22] LABS: APPEARANCE,URINE CLEAR; BILIRUBIN,URINE NEGATIVE (NEGATIVE); COLOR,URINE YELLOW; GLUCOSE, URINE >=500 mg/dL (NEGATIVE); KETONES,URINE 80 mg/dL (NEGATIVE); LEUKOCYTE ESTERASE,URINE NEGATIVE (NEGATIVE); NITRITE,URINE NEGATIVE (NEGATIVE); PROTEIN,URINE NEGATIVE (NEGATIVE); UROBILINOGEN,URINE NEGATIVE mg/dL (<2.0)
[2019-05-25] MEDS ORDERED: DEXTROSE 40% GEL 15 GM TUBE PO PRN (14:00)
[2019-05-25] MEDS ORDERED: DEXTROSE 40% GEL 15 GM TUBE X 2 PO PRN (14:00)
[2019-05-25] MEDS ORDERED: DEXTROSE 50%-WATER SYRINGE 12.5 GM/25 ML DOSE IV PRN (14:00)
[2019-05-25] MEDS ORDERED: DEXTROSE 50%-WATER SYRINGE 25 GM/50 ML DOSE IV PRN (14:00)
[2019-05-25] MEDS ORDERED: GLUCAGON,HUMAN RECOMB 1 MG INJ IM PRN (14:00)
[2019-05-25 14:02] LABS: HEMATOCRIT 46.5 % (36.0-47.0); HEMOGLOBIN 15.8 g/dL (12.0-15.5); MEAN CORPUSCULAR HEMOGLOBIN 28.5 pg (27.0-33.4); MEAN CORPUSCULAR HGB CONC 33.9 g/dL (32.0-36.0); MEAN CORPUSCULAR VOLUME 84 fl (80-97); PLATELET COUNT 172 10^3/uL (150-450); RED BLOOD COUNT 5.54 10^6/uL (3.72-5.28); RED CELL DISTRIBUTION WIDTH 13.2 % (11.5-14.0); WHITE BLOOD COUNT 14.7 10^3/uL (4.0-10.5)
[2019-05-25 14:27] LABS: ALBUMIN 4.5 g/dL (3.5-5.0); ALKALINE PHOSPHATASE 104 U/L (38-126); ASPARTATE AMINO TRANSFERASE 15 U/L (14-36); BILIRUBIN,DIRECT 0.4 mg/dL (0.0-0.4); BILIRUBIN,TOTAL 0.7 mg/dL (0.2-1.3); BLOOD UREA NITROGEN 25 mg/dL (7-20); CALCIUM 10.4 mg/dL (8.4-10.2); CREATINE KINASE 30 U/L (30-135); GLUCOSE 320 mg/dL (75-110); POTASSIUM 4.5 mmol/L (3.6-5.0); TOTAL PROTEIN 8.3 g/dL (6.3-8.2)
[2019-05-25] MEDS: NORMAL SALINE 1000 ML 1,000 ML IV PRN (14:29)
[2019-05-25] MEDS: NICOTINE 21 MG/24 HR PATCH.TD24 TD SCH (14:29)
[2019-05-25] MEDS: INSULIN LISPRO 100 UNIT/ML 3 ML VIAL SUBCUT SCH ×2 (14:30→22:09)
[2019-05-25 14:32] LABS: CARBON DIOXIDE 16 mmol/L (22-30); CHLORIDE 96 mmol/L (98-107)
[2019-05-25 14:35] LABS: NT PRO BNP 33 pg/mL (<125)
[2019-05-25 14:36] LABS: ANION GAP 20 (5-19)
[2019-05-25 14:41] LABS: CREATINE KINASE MB < 0.22 ng/mL (<4.55); TROPONIN I < 0.012 ng/mL
[2019-05-25] MEDS ORDERED: INSULIN LISPRO 100 UNIT/ML 3 ML VIAL SUBCUT SCH (16:00)
--- NOTE | 2019-05-25 16:25 | RADIOLOGY REPORT (SQ) ---
EXAM DESCRIPTION: CHEST 2 VIEWS COMPLETED DATE/TIME: 05/25/2019 3:03 pm REASON FOR STUDY: chest pain COMPARISON: AP chest 10/08/2018, 10/24/2017 EXAM PARAMETERS: NUMBER OF VIEWS: two views TECHNIQUE: Digital Frontal and Lateral radiographic views of the chest acquired. RADIATION DOSE: NA LIMITATIONS: none FINDINGS: LUNGS AND PLEURA: No opacities, masses or pneumothorax. No pleural effusion. MEDIASTINUM AND HILAR STRUCTURES: No masses or contour abnormalities. HEART AND VASCULAR STRUCTURES: Heart normal size. No evidence for failure. BONES: No acute findings. HARDWARE: Clips right upper quadrant post cholecystectomy OTHER: No other significant finding. IMPRESSION: NO ACUTE RADIOGRAPHIC FINDING IN THE CHEST. TECHNICAL DOCUMENTATION: JOB ID: [id number] [employer]- All Rights Reserved Reading location - IP/workstation name: [email or web address]
[2019-05-25] MEDS ORDERED: INFLUENZA QUAD (6MOS+) 2019-20 VAC 0.5 ML SYR IM ONE (18:00)
--- NOTE | 2019-05-25 18:15 | EKG REPORT ---
SEVERITY:- BORDERLINE ECG - SINUS TACHYCARDIA BORDERLINE T WAVE ABNORMALITIES : Confirmed by: Willie Monzon MD 25-May-2019 18:12:55
[2019-05-25] MEDS: HYDROMORPHONE HCL INJ/PF 2 MG/ML AMPULE IV PRN (18:48)
[2019-05-25 18:52] LABS: ABSOLUTE BASOPHILS # (AUTO) 0.1 10^3/uL (0.0-0.2); ABSOLUTE EOSINOPHILS # (AUTO) 0.3 10^3/uL (0.0-0.6); ABSOLUTE LYMPHOCYTES (AUTO) 3.4 10^3/uL (0.5-4.7); ABSOLUTE MONOCYTES (AUTO) 1.1 10^3/uL (0.1-1.4); ABSOLUTE NEUT (AUTO) 7.3 10^3/uL (1.7-8.2); BASOPHILS % (AUTO) 0.9 % (0-2); EOSINOPHILS % (AUTO) 2.3 % (0-6); HEMATOCRIT 43.3 % (36.0-47.0); HEMOGLOBIN 14.9 g/dL (12.0-15.5); LYMPHOCYTES % (AUTO) 28.1 % (13-45); MEAN CORPUSCULAR HEMOGLOBIN 28.7 pg (27.0-33.4); MEAN CORPUSCULAR HGB CONC 34.4 g/dL (32.0-36.0); MEAN CORPUSCULAR VOLUME 83 fl (80-97); MONOCYTES % (AUTO) 9.1 % (3-13); PLATELET COUNT 184 10^3/uL (150-450); SEGMENTED NEUTROPHILS % (AUTO) 59.6 % (42-78); TOTAL CELLS COUNTED % (AUTO) 100 %; WHITE BLOOD COUNT 12.2 10^3/uL (4.0-10.5)
[2019-05-25] MEDS ORDERED: INSULIN LISPRO 100 UNIT/ML 3 ML VIAL SUBCUT ONE (19:30)
[2019-05-25 19:33] LABS: CREATINE KINASE MB < 0.22 ng/mL (<4.55); TROPONIN I < 0.012 ng/mL
--- NOTE | 2019-05-25 20:15 | PDOC H&P ---
History of Present Illness Admission Date/PCP: 05/25/19 10:55 ASHLEE HUFF MD History of Present Illness: JASE PETERSEN is a 48 year old female,She came to the office today for ev aluation of multiple complaints including upper abdominal pain, cough, nausea, malaise,, chest pain. In the office a 12-lead EKG was done, it was sinus rhythm, there was no acute ST-T wave deviation, because of the multitude symptoms she had and because of her multiple risk factors for disease including poorly controlled diabetes mellitus tobacco abuse, she was admitted directly from the office to the hospital for evaluation. The initial evaluation including chest x-ray was negative there was leukocytosis there was polycythemia, the serum glucose was quite high at over 300 Past Medical History Cardiac Medical History: Reports: Hyperlipidema, Hypertension Endocrine Medical History: Reports: Diabetes Mellitus Type 2, Hypothyroidism Malignancy Medical History: Reports: Cervical Cancer - precancerious cells removed GI Medical History: Reports: Gastroesophageal Reflux Disease Past Surgical History Past Surgical History: Reports: Cholecystectomy Social History Smoking Status: Current Every Day Smoker Cigarettes Packs Per Day: 1.5 Electronic Cigarette use?: No Number of Years Smokin Last Time Smoked: 05/25/19 Frequency of Alcohol Use: None Hx Recreational Drug Use: No Drugs: None Hx Prescription Drug Abuse: No Family History Family History: None Parental Family History Reviewed: Yes Children Family History Reviewed: Yes Sibling(s) Family History Reviewed.: Yes Medication/Allergy Home Medications: Aspirin [Adult Low Dose Aspirin EC] 81 mg PO DAILY 05/25/19 Buspirone HCl [Buspar 5 mg Tablet] 7.5 mg PO BID 05/25/19 Carvedilol [Coreg 3.125 mg Tablet] 3.125 mg PO BID 05/25/19 Cyanocobalamin (Vitamin B-12) [Vitamin B-12 Inj 1000 Mcg/1 ml Vial] 1,000 mcg PO .2805/25/19 Duloxetine HCl [Cymbalta] 60 mg PO DAILY 05/25/19 Esomeprazole Mag Trihydrate [Nexium] 40 mg PO DAILY 05/25/19 Fluconazole [Diflucan] 150 mg PO TH 05/25/19 Gabapentin [Neurontin 300 mg Capsule] 300 mg PO TID 05/25/19 Insulin Glargine,Hum.rec.anlog [Lantus Insulin 100 Unit/1 ml 10 ml] 80 units SQ DAILY 05/25/19 Levothyroxine Sodium 75 mcg PO Q6AM 05/25/19 Linaclotide [Linzess] 290 mcg PO DAILY 05/25/19 Lisinopril/Hydrochlorothiazide [Zestoretic 20-12.5 mg Tablet] 2 tab PO DAILY 05/25/19 Metformin HCl [Glucophage] 1,000 mg PO BID 05/25/19 Montelukast Sodium [Singulair 10 mg Tablet] 10 mg PO QPM 05/25/19 Nitrofurantoin Macrocrystal [Macrodantin] 100 mg PO Q12 MDD LAST DOSE TODAY 05/25/19 [place]-3 Acid Ethyl Esters [Lovaza 1 gm Capsule] 2 gm PO BID 05/25/19 Pioglitazone HCl [Actos 15 mg Tablet] 15 mg PO DAILY 05/25/19 Pramipexole Di-HCl [Mirapex 0.25 mg Tablet] 0.25 mg PO QHS 05/25/19 Rosuvastatin Calcium [Crestor 10 mg Tablet] 10 mg PO DAILY 05/25/19 Sitagliptin Phosphate [Januvia] 100 mg PO DAILY 05/25/19 Suvorexant [Belsomra] 20 mg PO HSP PRN 05/25/19 Tapentadol HCl [Nucynta] 75 mg PO Q6 05/25/19 Topiramate [Topamax] 50 mg PO BID 05/25/19 Allergies/Adverse Reactions: atropine [From Lomotil] Allergy (Verified 05/25/19 11:20) Hives diphenoxylate [From Lomotil] Allergy (Verified 05/25/19 11:20) Hives Review of Systems Constitutional: PRESENT: fatigue Cardiovascular: PRESENT: other. ABSENT: as per HPI, chest pain, dyspnea on exertion, edema, orthropnea, palpitations Respiratory: ABSENT: as per HPI, cough, dyspnea, hemoptysis, sputum, other Gastrointestinal: PRESENT: abdominal pain Genitourinary: ABSENT: dysuria, hematuria Musculoskeletal: ABSENT: joint swelling Integumentary: ABSENT: rash, wounds Neurological: ABSENT: abnormal gait, abnormal speech, confusion, dizziness, focal weakness, syncope Psychiatric: ABSENT: anxiety, depression, homidical ideation, suicidal ideation Endocrine: ABSENT: cold intolerance, heat intolerance, menstrual abnormalities, polydipsia, polyuria Hematologic/Lymphatic: ABSENT: easy bleeding, easy bruising, lymphadenopathy Physical Exam Vital Signs: Temp Pulse Resp BP Pulse Ox 98.3 F 106 H 20 149/91 H 99 05/25/19 16:29 05/25/19 19:00 05/25/19 16:29 05/25/19 16:29 05/25/19 16:29 Intake & Output 05/24/19 05/25/19 05/26/19 06:59 06:59 06:59 Intake Total 240 Balance 240 Weight 84.9 kg General appearance: PRESENT: no acute distress, well-developed, well-nourished Head exam: PRESENT: atraumatic, normocephalic Eye exam: PRESENT: conjunctiva pink, EOMI, PERRLA Ear exam: PRESENT: normal external ear exam Mouth exam: PRESENT: moist, tongue midline Neck exam: PRESENT: full ROM. ABSENT: carotid bruit, JVD, lymphadenopathy, thyromegaly Respiratory exam: PRESENT: clear to auscultation tyrone Cardiovascular exam: PRESENT: RRR, +S1, +S2 Pulses: PRESENT: normal dorsalis pedis pul, +2 pedal pulses bilateral Vascular exam: PRESENT: normal capillary refill GI/Abdominal exam: PRESENT: normal bowel sounds, soft Rectal exam: PRESENT: deferred Neurological exam: PRESENT: alert, awake, oriented to person, oriented to place, oriented to time, oriented to situation, CN II-XII grossly intact Psychiatric exam: PRESENT: appropriate affect, normal mood Skin exam: PRESENT: dry, intact, warm Results Laboratory Results: 05/25/19 18:00 05/25/19 13:30 05/25/19 05/25/19 05/25/19 12:25 13:30 13:30 WBC 14.7 H RBC 5.54 H Hgb 15.8 H Hct 46.5 MCV 84 MCH 28.5 MCHC 33.9 RDW 13.2 Plt Count 172 Seg Neutrophils % Sodium 132.0 L Potassium 4.5 Chloride 96 L Carbon Dioxide 16 L Anion Gap 20 H BUN 25 H Creatinine 0.77 Est GFR ( Amer) > 60 Glucose 320 H Calcium 10.4 H Total Bilirubin 0.7 AST 15 Alkaline Phosphatase 104 Total Protein 8.3 H Albumin 4.5 Lipase Urine Color YELLOW Urine Appearance CLEAR Urine pH 5.0 Ur Specific [place] 1.030 Urine Protein NEGATIVE Urine Glucose (UA) >=500 H Urine Ketones 80 H Urine Blood NEGATIVE Urine Nitrite NEGATIVE Ur Leukocyte Esterase NEGATIVE Urine WBC (Auto) 1 Urine RBC (Auto) 0 05/25/19 05/25/19 18:00 18:00 WBC 12.2 H RBC 5.20 Hgb 14.9 Hct 43.3 MCV 83 MCH 28.7 MCHC 34.4 RDW 13.0 Plt Count 184 Seg Neutrophils % 59.6 Sodium Potassium Chloride Carbon Dioxide Anion Gap BUN Creatinine Est GFR ( Amer) Glucose Calcium Total Bilirubin AST Alkaline Phosphatase Total Protein Albumin Lipase 207.7 Urine Color Urine Appearance Urine pH Ur Specific [place] Urine Protein Urine Glucose (UA) Urine Ketones Urine Blood Urine Nitrite Ur Leukocyte Esterase Urine WBC (Auto) Urine RBC (Auto) 05/25/19 05/25/19 05/25/19 13:30 13:30 18:00 Creatine Kinase 30 CK-MB (CK-2) < 0.22 < 0.22 Troponin I < 0.012 < 0.012 NT-Pro-B Natriuret Pep 33 Impressions: Chest X-Ray 05/25/19 00:00 IMPRESSION: NO ACUTE RADIOGRAPHIC FINDING IN THE CHEST. Assessment & Plan - Diagnosis (1) Viral syndrome Is this a current diagnosis for this admission?: Yes Plan: Patient presents with nonspecific symptoms, consistent with viral syndrome (2) Uncontrolled type 2 diabetes mellitus Qualifiers: Glycemic state: with hyperglycemia Qualified Code(s): E11.65 - Type 2 diabetes mellitus with hyperglycemia Is this a current diagnosis for this admission?: Yes Plan: The diabetes is poorly controlled, hemoglobin A1c 11, serum glucose >300 (3) Epigastric pain Is this a current diagnosis for this admission?: Yes
[2019-05-25] MEDS: PREGABALIN 75 MG CAPSULE PO SCH (22:09)
[2019-05-26] MEDS: HYDROMORPHONE HCL INJ/PF 2 MG/ML AMPULE IV PRN ×3 (00:49→14:56)
[2019-05-26] MEDS: NORMAL SALINE 1000 ML 1,000 ML IV PRN ×2 (00:50→14:55)
[2019-05-26 06:39] LABS: CREATINE KINASE MB 0.35 ng/mL (<4.55)
[2019-05-26 06:45] LABS: TROPONIN I < 0.012 ng/mL
[2019-05-26] MEDS: INSULIN LISPRO 100 UNIT/ML 3 ML VIAL SUBCUT SCH ×3 (08:36→16:09)
[2019-05-26] MEDS: NICOTINE 21 MG/24 HR PATCH.TD24 TD SCH (10:10)
[2019-05-26] MEDS: PREGABALIN 75 MG CAPSULE PO SCH (10:11)
[2019-05-26 15:58] VITALS: BP 138/79
--- NOTE | 2019-05-26 19:42 | PDOC DISCHARGE SUMMARY ---
Impression - Admit/DC Date/PCP Admission Date/Primary Care Provider: 05/25/19 10:55 ASHLEE HUFF MD Discharge Date: 05/26/19 - Discharge Diagnosis (1) Viral syndrome Is this a current diagnosis for this admission?: Yes (2) Uncontrolled type 2 diabetes mellitus Is this a current diagnosis for this admission?: Yes (3) Epigastric pain Is this a current diagnosis for this admission?: Yes - Additional Information Discharge Diet: As Tolerated, Diabetic Discharge Activity: Activity As Tolerated, Balance Activity w/Rest, Slowly Increase Activity Referrals: ASHLEE HUFF MD [Primary Care Provider] - 06/05/19 10:00 am Home Medications: Aspirin [Adult Low Dose Aspirin EC] 81 mg PO DAILY 05/25/19 Buspirone HCl [Buspar 5 mg Tablet] 7.5 mg PO BID 05/25/19 Carvedilol [Coreg 3.125 mg Tablet] 3.125 mg PO BID 05/25/19 Cyanocobalamin (Vitamin B-12) [Vitamin B-12 Inj 1000 Mcg/1 ml Vial] 1,000 mcg PO .28DAYS 05/25/19 Duloxetine HCl [Cymbalta] 60 mg PO DAILY 05/25/19 Esomeprazole Mag Trihydrate [Nexium] 40 mg PO DAILY 05/25/19 Fluconazole [Diflucan] 150 mg PO TH 05/25/19 Gabapentin [Neurontin 300 mg Capsule] 300 mg PO TID 05/25/19 Insulin Glargine,Hum.rec.anlog [Lantus Insulin 100 Unit/1 ml 10 ml] 80 units SQ DAILY 05/25/19 Levothyroxine Sodium 75 mcg PO Q6AM 05/25/19 Linaclotide [Linzess] 290 mcg PO DAILY 05/25/19 Lisinopril/Hydrochlorothiazide [Zestoretic 20-12.5 mg Tablet] 2 tab PO DAILY 05/25/19 Metformin HCl [Glucophage] 1,000 mg PO BID 05/25/19 Montelukast Sodium [Singulair 10 mg Tablet] 10 mg PO QPM 05/25/19 Nitrofurantoin Macrocrystal [Macrodantin] 100 mg PO Q12 MDD LAST DOSE TODAY 05/25/19 [place]-3 Acid Ethyl Esters [Lovaza 1 gm Capsule] 2 gm PO BID 10/07/19 Pioglitazone HCl [Actos 15 mg Tablet] 15 mg PO DAILY 05/25/19 Pramipexole Di-HCl [Mirapex 0.25 mg Tablet] 0.25 mg PO QHS 05/25/19 Rosuvastatin Calcium [Crestor 10 mg Tablet] 10 mg PO DAILY 05/25/19 Sitagliptin Phosphate [Januvia] 100 mg PO DAILY 05/25/19 Suvorexant [Belsomra] 20 mg PO HSP PRN 05/25/19 Tapentadol HCl [Nucynta] 75 mg PO Q6 05/25/19 Topiramate [Topamax] 50 mg PO BID 05/25/19 History of Present Illiness History of Present Illness: JASE PETERSEN is a 48 year old female,She came to the office today for evaluation of multiple complaints including upper abdominal pain, cough, nausea, malaise,, chest pain. In the office a 12-lead EKG was done, it was sinus rhythm, there was no acute ST-T wave deviation, because of the multitude symptoms she had and because of her multiple risk factors for disease including poorly controlled diabetes mellitus tobacco abuse, she was admitted directly from the office to the hospital for evaluation. The initial evaluation including chest x-ray was negative there was leukocytosis there was polycyth emia, the serum glucose was quite high at over 300 Hospital Course Hospital Course: Patient was admitted for the management of viral syndrome, uncontrolled type 2 diabetes mellitus, epigastric pain, she was treated with normal saline infusion, pain control achieved with Dilaudid.She was admitted for observation, management Physical Exam Vital Signs: Temp Pulse Resp BP Pulse Ox 97.6 F 97 16 138/79 H 98 05/26/19 18:15 05/26/19 18:15 05/26/19 18:15 05/26/19 18:15 05/26/19 18:15 Intake & Output 05/25/19 05/26/19 05/27/19 06:59 06:59 06:59 Intake Total 1960 1480 Output Total 1900 Balance 60 1480 Weight 88.7 kg General appearance: PRESENT: no acute distress Eye exam: PRESENT: PERRLA Respiratory exam: PRESENT: clear to auscultation tyrone Cardiovascular exam: PRESENT: +S1, +S2 GI/Abdominal exam: PRESENT: soft Neurological exam: PRESENT: alert, CN II-XII grossly intact Results Laboratory Results: WBC 12.2 10^3/uL (4.0-10.5) H 05/25/19 18:00 RBC 5.20 10^6/uL (3.72-5.28) 05/25/19 18:00 Hgb 14.9 g/dL (12.0-15.5) 05/25/19 18:00 Hct 43.3 % (36.0-47.0) 05/25/19 18:00 MCV 83 fl (80-97) 05/25/19 18:00 MCH 28.7 pg (27.0-33.4) 05/25/19 18:00 MCHC 34.4 g/dL (32.0-36.0) 05/25/19 18:00 RDW 13.0 % (11.5-14.0) 05/25/19 18:00 Plt Count 184 10^3/uL (150-450) 05/25/19 18:00 Lymph % (Auto) 28.1 % (13-45) 05/25/19 18:00 [place] % (Auto) 9.1 % (3-13) 05/25/19 18:00 Eos % (Auto) 2.3 % (0-6) 05/25/19 18:00 Baso % (Auto) 0.9 % (0-2) 05/25/19 18:00 Absolute Neuts (auto) 7.3 10^3/uL (1.7-8.2) 05/25/19 18:00 Absolute Lymphs (auto) 3.4 10^3/uL (0.5-4.7) 05/25/19 18:00 Absolute Monos (auto) 1.1 10^3/uL (0.1-1.4) 05/25/19 18:00 Absolute Eos (auto) 0.3 10^3/uL (0.0-0.6) 05/25/19 18:00 Absolute Basos (auto) 0.1 10^3/uL (0.0-0.2) 05/25/19 18:00 Seg Neutrophils % 59.6 % (42-78) 05/25/19 18:00 D-Dimer 0.64 ug/mL (0.00-0.50) H 05/25/19 13:30 Sodium 132.0 mmol/L (137-145) L 05/25/19 13:30 Potassium 4.5 mmol/L (3.6-5.0) 05/25/19 13:30 Chloride 96 mmol/L (98-107) L 05/25/19 13:30 Carbon Dioxide 16 mmol/L (22-30) L 05/25/19 13:30 Anion Gap 20 (5-19) H 05/25/19 13:30 BUN 25 mg/dL (7-20) H 05/25/19 13:30 Creatinine 0.77 mg/dL (0.52-1.25) 05/25/19 13:30 Est GFR ( Amer) > 60 (>60) 05/25/19 13:30 Est GFR (MDRD) Non-Af > 60 (>60) 05/25/19 13:30 Glucose 320 mg/dL (75-110) H 05/25/19 13:30 POC Glucose 349 mg/dL (70-110) H 05/26/19 15:33 Hemoglobin A1c % 11.7 % (4.7-6.0) H 05/25/19 13:30 Calcium 10.4 mg/dL (8.4-10.2) H 05/25/19 13:30 Total Bilirubin 0.7 mg/dL (0.2-1.3) 05/25/19 13:30 Direct Bilirubin 0.4 mg/dL (0.0-0.4) 05/25/19 13:30 Neonat Total Bilirubin Not Reportable 05/25/19 13:30 Neonat Direct Bilirubin Not Reportable 05/25/19 13:30 Neonat Indirect Bili Not Reportable 05/25/19 13:30 AST 15 U/L (14-36) 05/25/19 13:30 ALT 16 U/L (<35) 05/25/19 13:30 Alkaline Phosphatase 104 U/L (38-126) 05/25/19 13:30 Creatine Kinase 25 U/L (30-135) L 05/26/19 05:06 CK-MB (CK-2) 0.35 ng/mL (<4.55) 05/26/19 05:06 Troponin I < 0.012 ng/mL 05/26/19 05:06 NT-Pro-B Natriuret Pep 33 pg/mL (<125) 05/25/19 13:30 Total Protein 8.3 g/dL (6.3-8.2) H 05/25/19 13:30 Albumin 4.5 g/dL (3.5-5.0) 05/25/19 13:30 Lipase 207.7 U/L (23-300) 05/25/19 18:00 Urine Color YELLOW 05/25/19 12:25 Urine Appearance CLEAR 05/25/19 12:25 Urine pH 5.0 (5.0-9.0) 05/25/19 12:25 Ur Specific [place] 1.030 05/25/19 12:25 Urine Protein NEGATIVE mg/dL (NEGATIVE) 05/25/19 12:25 Urine Glucose (UA) >=500 mg/dL (NEGATIVE) H 05/25/19 12:25 Urine Ketones 80 mg/dL (NEGATIVE) H 05/25/19 12:25 Urine Blood NEGATIVE (NEGATIVE) 05/25/19 12:25 Urine Nitrite NEGATIVE (NEGATIVE) 05/25/19 12:25 Urine Bilirubin NEGATIVE (NEGATIVE) 05/25/19 12:25 Urine Urobilinogen NEGATIVE mg/dL (<2.0) 05/25/19 12:25 Ur Leukocyte Esterase NEGATIVE (NEGATIVE) 05/25/19 12:25 Urine WBC (Auto) 1 /HPF 05/25/19 12:25 Urine RBC (Auto) 0 /HPF 05/25/19 12:25 Urine Bacteria (Auto) TRACE /HPF 05/25/19 12:25 Squamous Epi Cells Auto 2 /HPF 05/25/19 12:25 Urine Ascorbic Acid NEGATIVE (NEGATIVE) 05/25/19 12:25 05/25/19 05/25/19 05/26/19 13:30 18:00 05:06 CK-MB (CK-2) < 0.22 < 0.22 0.35 Troponin I < 0.012 < 0.012 < 0.012 NT-Pro-B Natriuret Pep 33 Impressions: Chest X-Ray 05/25/19 00:00 IMPRESSION: NO ACUTE RADIOGRAPHIC FINDING IN THE CHEST. Stroke Is this a Stroke Patient?: No Stroke Pt being discharged on Anti-thrombolytic therapy?: No Reason(s) for not prescribing Anti-thrombolytic therapy:: Not indicated Stroke Pt being discharged on Anti-coagulation therapy?: No Reason(s) for not prescribing Anti-coagulation therapy:: Not indicated Stroke Pt being discharged on Statins?: No Reason(s) for not prescribing Statins therapy:: Not indicated Acute Heart Failure - Is this a Heart Failure Patient?: No Documentation of LVEF assessment?: Yes Follow-up Appointment scheduled within 7 days?: Yes
== END 2019-05-26 18:30 | disposition home or self-care (01) ==
LOC: 3S 10:55 → EDSTATUS 11:40
PROVIDERS: ADMIT Internal Medicine; ATTEND Internal Medicine
DX: B34.9 Viral infection, unspecified (principal); I10 Essential (primary) hypertension; E03.9 Hypothyroidism, unspecified; D75.1 Secondary polycythemia; E78.5 Hyperlipidemia, unspecified; K21.9 Gastro-esophageal reflux disease without esophagitis; E11.65 Type 2 diabetes mellitus with hyperglycemia; D72.829 Elevated white blood cell count, unspecified; F17.210 Nicotine dependence, cigarettes, uncomplicated; R07.9 Chest pain, unspecified; R10.13 Epigastric pain; R05 Cough; R11.0 Nausea; R53.83 Other fatigue; Z79.82 Long term (current) use of aspirin; Z79.4 Long term (current) use of insulin; Z85.41 Personal history of malignant neoplasm of cervix uteri; Z88.8 Allergy status to other drugs, medicaments and biological substances
CPT/HCPCS: 93005 ×2; 36415 ×2; 87040; 87086; 82553 ×2; 82962 ×2; 82550 ×2; 83690; 85027; 80076; 80048; 81001; 84484 ×2; 83036; 85379; 83880; 71046; 93010; G0378 ×2; G0379; J1815 ×2; J1170 ×2; J7030 ×2

== ENCOUNTER 2019-08-29 13:14 | Emergency (ER) | payer BC ==
--- NOTE | 2019-08-29 13:22 | ER Document Report ---
ED Medical Screen (RME) - General Stated Complaint: POSSIBLE STROKE Time Seen by Provider: 08/29/19 13:19 Primary Care Provider: ASHLEE HUFF MD [Primary Care Provider] - Follow up as needed TRAVEL OUTSIDE OF THE [place] IN LAST 30 DAYS: No - HPI Notes: 08/29/19 13:20 Patient is a 48-year-old female with a history of TIA, hypertension who presents complaining of feeling a mild headache, weakness, and left arm tingling/weakness that began at 10 AM. Patient states that around the holidays she was seen here and flown to [place] for possible stroke at that time and was told that she had TIAs. Patient believes that she does have some clotting to her right side carotid artery. Patient does describe feeling a little chest pain on her way here as well. No fever. Pt taken back to CT scan. Main side notified. I have treated and performed a rapid initial assessment of this patient. A comprehensive ED assessment and evaluation of the patient, analysis of test results and completion of medical decision making process will be conducted by additional ED providers. PHYSICAL EXAMINATION: GENERAL: Well-appearing, well-nourished and in no acute distress. A&Ox4. Answers questions appropriately. Neuro: There is a mild left facial droop. Strength is intact bilaterally. NIH is a 1 otherwise at this time. Sensation is intact distally bilaterally. Pronator drift negative. [id number] within normal limits as well as heel/saldaña. - Related Data Allergies/Adverse Reactions: atropine [From Lomotil] Allergy (Verified 05/25/19 11:20) Hives diphenoxylate [From Lomotil] Allergy (Verified 05/25/19 11:20) Hives Past Medical History - Past Medical History Cardiac Medical History: Reports: Hx Hypercholesterolemia, Hx Hypertension Endocrine Medical History: Reports: Hx Diabetes Mellitus Type 2, Hx Hypothyroidism. Denies: Hx Graves' Disease Renal/ Medical History: Denies: Hx Ovarian Cysts, Hx Peritoneal Dialysis, Hx Pelvic Inflammatory Disease Malignancy Medical History: Reports: Hx Cervical Cancer - precancerious cells removed GI Medical History: Reports: Hx Gastroesophageal Reflux Disease. Denies: Hx Irritable Bowel, Hx Liver Failure, Hx Pancreatitis, Hx Ulcer Musculoskeltal Medical History: Denies Hx Systemic Lupus Erythematosus Psychiatric Medical History: Denies: Hx Depression Past Surgical History: Reports: Hx Cholecystectomy, Hx Gynecologic Surgery - Immunizations Immunizations up to date: Yes Hx Diphtheria, Pertussis, Tetanus Vaccination: Yes Doctor's Discharge - Discharge Referrals: ASHLEE HUFF MD [Primary Care Provider] - Follow up as needed
--- NOTE | 2019-08-29 13:40 | ER Document Report ---
ED General - General Chief Complaint: S/S of Possible Stroke Stated Complaint: POSSIBLE STROKE Time Seen by Provider: 08/29/19 13:19 Primary Care Provider: ASHLEE HUFF MD [Primary Care Provider] - 08/31/19 TRAVEL OUTSIDE OF THE [place] IN LAST 30 DAYS: No - HPI Notes: 48-year-old female to the emergency department with complaints of new onset left arm tingling and numbness and slurred speech. She states that her symptoms started about 1030 this morning. Of note, she had a stroke on . She states that she was taking care of at bided. She states that she has had residual left-sided facial droop and some weakness into the left arm but her speech has been clear and she has not had numbness and tingling into the arm before. She states that she was placed on Plavix at the time of her last admission for stroke and had her sugar controlled much more tightly. She states she was started on Humalog. She states that she has been faithful on her Plavix. She states she has her medicines divided into morning and nighttime doses and she is not quite sure if she had Plavix this morning. She did chew an [address] her [address] to the hospital. She states that she has not had any vision changes. She admits to a mild headache in the front of her head. She states on the way to the hospital she had some midsternal chest pain but that has gone away. She states that she has not been diaphoretic or vomiting. She states that she has not taken her blood sugar in several days but it has been running in the mid 100s to low 200s. She is followed by Dr. Huff here in [place]. She is not currently in OT or physical therapy. Her significant other is bedside and he agrees that her speech is significantly different today. Patient continues to smoke. She is down to 1 pack a day from 1-1/2 packs a day. She is currently taking Chantix for this. - Related Data Allergies/Adverse Reactions: atropine [From Lomotil] Allergy (Verified 05/25/19 11:20) Hives diphenoxylate [From Lomotil] Allergy (Verified 05/25/19 11:20) Hives Past Medical History - General Information source: Patient - Social History Smoking Status: Current Every Day Smoker Frequency of alcohol use: None Drug Abuse: None Lives with: Family Family History: None Patient has suicidal ideation: No Patient has homicidal ideation: No - Past Medical History Cardiac Medical History: Reports: Hx Hypercholesterolemia, Hx Hypertension Endocrine Medical History: Reports: Hx Diabetes Mellitus Type 2, Hx Hypothyroi dism. Denies: Hx Graves' Disease Renal/ Medical History: Denies: Hx Ovarian Cysts, Hx Peritoneal Dialysis, Hx Pelvic Inflammatory Disease Malignancy Medical History: Reports: Hx Cervical Cancer - precancerious cells removed GI Medical History: Reports: Hx Gastroesophageal Reflux Disease. Denies: Hx Irritable Bowel, Hx Liver Failure, Hx Pancreatitis, Hx Ulcer Musculoskeletal Medical History: Denies Hx Systemic Lupus Erythematosus Psychiatric Medical History: Denies: Hx Depression Past Surgical History: Reports: Hx Cholecystectomy, Hx Gynecologic Surgery - Immunizations Immunizations up to date: Yes Hx Diphtheria, Pertussis, Tetanus Vaccination: Yes Hx Pneumococcal Vaccination: 05/19/19 Review of Systems - Review of Systems Constitutional: denies: Chills, Fever EENT: denies: Blurred vision, Double vision Cardiovascular: See HPI, Chest pain. denies: Palpitations, Heart racing, Orthopnea, Dyspnea, Syncope, Dizziness, Lightheaded Respiratory: denies: Cough, Short of breath Gastrointestinal: denies: Abdominal pain, Diarrhea, Nausea, Vomiting Musculoskeletal: No symptoms reported Skin: No symptoms reported. denies: Rash Neurological/Psychological: Speech impairment - + garbled/slurred speech, Numbness - + left arm numbness/tingling. -: Yes All other systems reviewed and negative Physical Exam - Vital signs Vitals: Resp Pulse Ox 14 87 L 08/29/19 13:36 08/29/19 13:36 Selected Entries 08/29/19 13:37 Heart Rate ( 95 Monitors) Respiratory 21 H Rate Blood Pressure 119/91 H Blood Pressure 100 Mean O2 Sat by Pulse 98 Oximetry noted initial O2 sat -- this is an erroneous value. Interpretation: Normal Course - Re-evaluation Re-evalutation: 08/29/[address] and lab findings. Discussed patient with Dr. Mercado, ER attending. She would like me to call [facility]anda to speak with neurology. Received a call from Dr. Ward, from [facility], he is the "stroke attending". He states that this patient may be having some residual symptoms for her prior stroke, but with her NIH of 3, he has a lower suspicion for an acute event. He would like for me to obtain an MRI of the brain to evaluate further. If she is negative, she may be discharged home. Noted MRI -- negative. Rounded on patient and actually her speech has improved. We will discharge her home. Encouraged continued use of Plavix, close monitoring of her glucose. She will see her PCP, Dr. Singh on Saturday. Incidentally, her PCP was in the department at the time I was going over discharge instructions. He told her he would like for her to come to the office Saturday. Encouraged patient to return if any worsening symptoms. Head CT 08/29/19 13:19 IMPRESSION: NORMAL BRAIN CT WITHOUT CONTRAST. EVIDENCE OF ACUTE STROKE: NO. Chest X-Ray 08/29/19 13:25 IMPRESSION: NO SIGNIFICANT RADIOGRAPHIC FINDING IN THE CHEST. Head MRI 08/29/19 15:23 IMPRESSION: 1. No acute ischemia, evidence of intracranial hemorrhage, or intracranial mass or mass effect. 2. Moderate chronic small vessel ischemic change. EVIDENCE OF ACUTE STROKE: NO. - Vital Signs Vital signs: Temp Pulse Resp BP Pulse Ox 98.6 F 95 11 L 145/100 H 99 08/29/19 17:07 08/29/19 17:07 08/29/19 17:07 08/29/19 17:07 08/29/19 17:07 - Laboratory Result Diagrams: 08/29/19 13:42 08/29/19 13:42 Laboratory results interpreted by me: 08/29/19 08/29/19 08/29/19 13:38 13:42 13:42 WBC 12.3 H Sodium 134.3 L Chloride 95 L BUN 23 H Glucose 156 H POC Glucose 166 H Urine Glucose (UA) Urine Ketones 08/29/19 13:51 WBC Sodium Chloride BUN Glucose POC Glucose Urine Glucose (UA) >=500 H Urine Ketones TRACE H - Diagnostic Test Radiology reviewed: Image reviewed, Reports reviewed - EKG Interpretation by Me Additional EKG results interpreted by me: 08/29/19 rate 93, rhythm: Sinus, interpretation: No STEMI, T wave inversions in lead III but with no other contiguous findings. There is no prior Discharge - Discharge Clinical Impression: Left arm numbness, Dysarthria Condition: Stable Disposition: HOME, SELF-CARE Instructions: Numbness or Paresthesia ([facility]) Additional Instructions: FOLLOW UP WITH YOUR PRIMARY CARE PHYSICIAN ON SATURDAY WITHOUT FAIL. CALL THE OFFICE ON SATURDAY TO GET SCHEDULED IN. CONTINUE YOUR PLAVIX. RETURN IF YOU HAVE WORSENING SYMPTOMS. KEEP AN EYE ON YOUR BLOOD GLUCOSE. Referrals: ASHLEE HUFF MD [Primary Care Provider] - 08/31/19
--- NOTE | 2019-08-29 13:44 | RADIOLOGY REPORT (SQ) ---
EXAM DESCRIPTION: CT HEAD WITHOUT COMPLETED DATE/TIME: 08/29/2019 1:29 pm REASON FOR STUDY: Left arm weakness/tingling, left droop x3hrs COMPARISON: None. TECHNIQUE: Axial images acquired through the brain without intravenous contrast. Images reviewed wi th bone, brain and subdural windows. Additional sagittal and coronal reconstructions were generated. Images stored on PACS. All CT scanners at this facility use dose modulation, iterative reconstruction, and/or weight based d osing when appropriate to reduce radiation dose to as low as reasonably achievable (ALARA). [facility]: Dose Right [facility]: CareDose [facility]: Dose Right [facility]: Teradose 4D [facility]: [employer] RADIATION DOSE: CT Rad equipment meets quality standard of care and radiation dose reduction techniq ues were employed. CTDIvol: 53.2 mGy. DLP: 964 mGy-cm. mGy. LIMITATIONS: None. FINDINGS: VENTRICLES: Normal size and contour. CEREBRUM: No masses. No hemorrhage. No midline shift. No evidence for acute infarction. Normal gra y/white matter differentiation. No areas of low density in the white matter. CEREBELLUM: No masses. No hemorrhage. No alteration of density. No evidence for acute infarction. EXTRAAXIAL SPACES: No fluid collections. No masses. ORBITS AND GLOBE: No intra- or extraconal masses. Normal contour of globe without masses. CALVARIUM: No fracture. PARANASAL SINUSES: No fluid or mucosal thickening. SOFT TISSUES: No mass or hematoma. OTHER: No other significant finding. IMPRESSION: NORMAL BRAIN CT WITHOUT CONTRAST. EVIDENCE OF ACUTE STROKE: NO. COMMENT: Quality ID # [id number]: Final reports with documentation of one or more dose reduction techniques (e.g., Automated exposure control, adjustment of the mA and/or kV according to patient size, use of iterative reconstruction technique) TECHNICAL DOCUMENTATION: JOB ID: [id number] [employer]- All Rights Reserved Reading location - IP/workstation name: [email or web address]
--- NOTE | 2019-08-29 13:49 | RADIOLOGY REPORT (SQ) ---
EXAM DESCRIPTION: CHEST 2 VIEWS COMPLETED DATE/TIME: 08/29/2019 1:35 pm REASON FOR STUDY: CP COMPARISON: 05/25/2019. TECHNIQUE: Frontal and lateral radiographic views of the chest acquired. NUMBER OF VIEWS: Two view. LIMITATIONS: None. FINDINGS: LUNGS AND PLEURA: No opacities, masses or pneumothorax. No pleural effusion. MEDIASTINUM AND HILAR STRUCTURES: No masses or contour abnormalities. HEART AND VASCULAR STRUCTURES: Heart normal size. No evidence for failure. BONES: No acute findings. HARDWARE: None in the chest. OTHER: No other significant finding. IMPRESSION: NO SIGNIFICANT RADIOGRAPHIC FINDING IN THE CHEST. TECHNICAL DOCUMENTATION: JOB ID: [id number] [employer]- All Rights Reserved Reading location - IP/workstation name: [email or web address]
[2019-08-29 14:04] LABS: ABSOLUTE EOSINOPHILS # (AUTO) 0.5 10^3/uL (0.0-0.6); ABSOLUTE MONOCYTES (AUTO) 0.9 10^3/uL (0.1-1.4); TOTAL CELLS COUNTED % (AUTO) 100 %; WHITE BLOOD COUNT 12.3 10^3/uL (4.0-10.5)
[2019-08-29 14:08] LABS: INTERNATIONAL RATION (INR) 0.89
[2019-08-29 14:09] LABS: PARTIAL THROMBOPLASTIN TIME 31.7 SEC (23.5-35.8)
[2019-08-29 14:18] LABS: ALBUMIN 4.3 g/dL (3.5-5.0); ALKALINE PHOSPHATASE 98 U/L (38-126); ANION GAP 12 (5-19); ASPARTATE AMINO TRANSFERASE 22 U/L (14-36); BILIRUBIN,DIRECT 0.3 mg/dL (0.0-0.4); BILIRUBIN,TOTAL 0.3 mg/dL (0.2-1.3); BLOOD UREA NITROGEN 23 mg/dL (7-20); CALCIUM 9.7 mg/dL (8.4-10.2); CARBON DIOXIDE 27 mmol/L (22-30); CHLORIDE 95 mmol/L (98-107); GLUCOSE 156 mg/dL (75-110); POTASSIUM 4.7 mmol/L (3.6-5.0); TOTAL PROTEIN 7.9 g/dL (6.3-8.2)
[2019-08-29 14:22] LABS: ABSOLUTE BASOPHILS # (AUTO) 0.2 10^3/uL (0.0-0.2); ABSOLUTE LYMPHOCYTES (AUTO) 4.1 10^3/uL (0.5-4.7); ABSOLUTE NEUT (AUTO) 6.6 10^3/uL (1.7-8.2); BASOPHILS % (AUTO) 1.4 % (0-2); HEMATOCRIT 41.6 % (36.0-47.0); HEMOGLOBIN 14.6 g/dL (12.0-15.5); LYMPHOCYTES % (AUTO) 33.7 % (13-45); MEAN CORPUSCULAR HEMOGLOBIN 29.2 pg (27.0-33.4); MEAN CORPUSCULAR HGB CONC 35.1 g/dL (32.0-36.0); MEAN CORPUSCULAR VOLUME 83 fl (80-97); MONOCYTES % (AUTO) 7.3 % (3-13); PLATELET COUNT 197 10^3/uL (150-450); RED CELL DISTRIBUTION WIDTH 12.7 % (11.5-14.0); SEGMENTED NEUTROPHILS % (AUTO) 53.6 % (42-78)
[2019-08-29 14:22] LABS: APPEARANCE,URINE SLIGHTLY-CLOUDY; BILIRUBIN,URINE NEGATIVE (NEGATIVE); COLOR,URINE YELLOW; GLUCOSE, URINE >=500 mg/dL (NEGATIVE); KETONES,URINE TRACE mg/dL (NEGATIVE); PROTEIN,URINE NEGATIVE (NEGATIVE); URINE SPECIFIC GRAVITY 1.029; UROBILINOGEN,URINE NEGATIVE mg/dL (<2.0)
[2019-08-29] MEDS ORDERED: ASPIRIN 81 MG TABLET, CHEWABLE PO ONE (14:46)
--- NOTE | 2019-08-29 16:30 | RADIOLOGY REPORT (SQ) ---
EXAM DESCRIPTION: MRI HEAD WITHOUT COMPLETED DATE/TIME: 08/29/2019 3:05 pm REASON FOR STUDY: dysarthria, arm numbness/tingling. Patient presented with left arm weakness, ting ling, left droop for 3 hours on 08/29/2027. History of CVA. Garbled speech and left facial droop. H eadache. Left arm tingling. Hypertension, diabetes, COMPARISON: CT head, 08/29/2019. TECHNIQUE: Multiplanar imaging includes non-contrasted T1, T2, FLAIR, and diffusion with ADC map seq uences. Images stored on PACS. LIMITATIONS: None. FINDINGS: ANATOMY: No anomalies. Normal vascular flow voids. Pituitary fossa normal. CSF SPACES: Normal in size and contour. No hemorrhage. CEREBRUM: Sulci and gyri normal in size and contour. There is moderate diffuse patchy periventricula r, deep, and subcortical white matter hyperintense T2 and T2 FLAIR signal. No evidence of hemorrhage , mass, or extraaxial fluid collection. POSTERIOR FOSSA: No signal alteration. No hemorrhage. No edema, masses or mass effect. Internal devin tory canals, cerebello-pontine angles, mastoids normal. DIFFUSION IMAGING: Diffusion sequences demonstrate T2 shine through with no evidence of restricted di ffusion on ADC map. Negative for acute or sub-acute infarction. ORBITS: No masses. Globes normal. PARANASAL SINUSES: No fluid levels. Mucosa normal. OTHER: No other significant finding. IMPRESSION: 1. No acute ischemia, evidence of intracranial hemorrhage, or intracranial mass or mass effect. 2. Moderate chronic small vessel ischemic change. EVIDENCE OF ACUTE STROKE: NO. TECHNICAL DOCUMENTATION: JOB ID: [id number]- All Rights Reserved Reading location - IP/workstation name: [email or web address]
[2019-08-29 17:08] VITALS: BP 145/100
--- NOTE | 2019-08-30 20:45 | EKG REPORT ---
SEVERITY:- BORDERLINE ECG - SINUS RHYTHM BORDERLINE T ABNORMALITIES, INFERIOR LEADS : Confirmed by: Farzana Siddiqi 30-Aug-2019 20:44:44
== END 2019-08-29 17:08 | disposition home or self-care (01) ==
LOC: ER 13:14
DX: R20.0 Anesthesia of skin (principal); R47.1 Dysarthria and anarthria; R47.81 Slurred speech; R29.810 Facial weakness; M62.81 Muscle weakness (generalized); R51 Headache; Z79.899 Other long term (current) drug therapy; Z79.02 Long term (current) use of antithrombotics/antiplatelets; F17.200 Nicotine dependence, unspecified, uncomplicated; Z88.8 Allergy status to other drugs, medicaments and biological substances; I10 Essential (primary) hypertension; E11.9 Type 2 diabetes mellitus without complications
CPT/HCPCS: 36415; 70450; 70551; 71046; 80053; 81001; 81025; 82962; 84484; 85025; 85610; 85730; 93005; 93010; 99284

== ENCOUNTER 2019-09-16 15:35 | Emergency (ER) | payer BC ==
--- NOTE | 2019-09-16 15:44 | ER Document Report ---
ED Medical Screen (RME) - General Chief Complaint: S/S of Possible Stroke Stated Complaint: STROKE LIKE SYMPTOMS Time Seen by Provider: 09/16/19 15:38 Primary Care Provider: ASHLEE HUFF MD [Primary Care Provider] - Follow up as needed Mode of Arrival: Wheelchair Information source: Patient Notes: 48-year-old female presented to ED with strokelike symptoms. She states she is having hard time putting her words together. She states she has a severe headache and has had her last stroke about a month ago. She has some palmar drift on the left side with left-sided weakness. She states symptoms started this morning around 7:00. She is on blood thinners. I have greeted and performed a rapid initial assessment of this patient. A comprehensive ED assessment and evaluation of the patient, analysis of test results and completion of medical decision making process will be conducted by an additional ED providers. - Related Data Allergies/Adverse Reactions: atropine [From Lomotil] Allergy (Verified 05/25/19 11:20) Hives diphenoxylate [From Lomotil] Allergy (Verified 05/25/19 11:20) Hives Past Medical History - Past Medical History Cardiac Medical History: Reports: Hx Hypercholesterolemia, Hx Hypertension Endocrine Medical History: Reports: Hx Diabetes Mellitus Type 2, Hx Hypothyroidism. Denies: Hx Graves' Disease Renal/ Medical History: Denies: Hx Ovarian Cysts, Hx Peritoneal Dialysis, Hx Pelvic Inflammatory Disease Malignancy Medical History: Reports: Hx Cervical Cancer - precancerious cells removed GI Medical History: Reports: Hx Gastroesophageal Reflux Disease. Denies: Hx Irritable Bowel, Hx Liver Failure, Hx Pancreatitis, Hx Ulcer Musculoskeltal Medical History: Denies Hx Systemic Lupus Erythematosus Psychiatric Medical History: Denies: Hx Depression Past Surgical History: Reports: Hx Cholecystectomy, Hx Gynecologic Surgery - Immunizations Immunizations up to date: Yes Hx Diphtheria, Pertussis, Tetanus Vaccination: Yes Doctor's Discharge - Discharge Referrals: ASHLEE HUFF MD [Primary Care Provider] - Follow up as needed
[2019-09-16 16:14] LABS: ABSOLUTE BASOPHILS # (AUTO) 0.1 10^3/uL (0.0-0.2); ABSOLUTE EOSINOPHILS # (AUTO) 0.5 10^3/uL (0.0-0.6); ABSOLUTE LYMPHOCYTES (AUTO) 3.7 10^3/uL (0.5-4.7); ABSOLUTE MONOCYTES (AUTO) 0.8 10^3/uL (0.1-1.4); ABSOLUTE NEUT (AUTO) 7.2 10^3/uL (1.7-8.2); BASOPHILS % (AUTO) 1.2 % (0-2); EOSINOPHILS % (AUTO) 4.2 % (0-6); HEMATOCRIT 39.1 % (36.0-47.0); HEMOGLOBIN 13.4 g/dL (12.0-15.5); MEAN CORPUSCULAR HEMOGLOBIN 28.8 pg (27.0-33.4); MEAN CORPUSCULAR HGB CONC 34.2 g/dL (32.0-36.0); MEAN CORPUSCULAR VOLUME 84 fl (80-97); MONOCYTES % (AUTO) 6.6 % (3-13); PLATELET COUNT 203 10^3/uL (150-450); RED BLOOD COUNT 4.66 10^6/uL (3.72-5.28); RED CELL DISTRIBUTION WIDTH 13.4 % (11.5-14.0); TOTAL CELLS COUNTED % (AUTO) 100 %; WHITE BLOOD COUNT 12.4 10^3/uL (4.0-10.5)
--- NOTE | 2019-09-16 16:14 | RADIOLOGY REPORT (SQ) ---
EXAM DESCRIPTION: CHEST SINGLE VIEW COMPLETED DATE/TIME: 09/16/2019 3:53 pm REASON FOR STUDY: Strokelike symptoms COMPARISON: 08/29/2019 EXAM PARAMETERS: NUMBER OF VIEWS: One view. TECHNIQUE: Single frontal radiographic view of the chest acquired. RADIATION DOSE: NA LIMITATIONS: None. FINDINGS: LUNGS AND PLEURA: No opacities, masses or pneumothorax. No pleural effusion. MEDIASTINUM AND HILAR STRUCTURES: No masses. Contour normal. HEART AND VASCULAR STRUCTURES: Heart normal in size. Normal vasculature. BONES: No acute findings. HARDWARE: None in the chest. OTHER: No other significant finding. IMPRESSION: NO ACUTE RADIOGRAPHIC FINDING IN THE CHEST. TECHNICAL DOCUMENTATION: JOB ID: [id number] [employer]- All Rights Reserved Reading location - IP/workstation name: [email or web address]
--- NOTE | 2019-09-16 16:15 | RADIOLOGY REPORT (SQ) ---
EXAM DESCRIPTION: CT HEAD WITHOUT COMPLETED DATE/TIME: 09/16/2019 3:49 pm REASON FOR STUDY: stroke like symptoms COMPARISON: MR 08/29/2019 CT 08/29/2019 TECHNIQUE: Axial images acquired through the brain without intravenous contrast. Images reviewed wi th bone, brain and subdural windows. Additional sagittal and coronal reconstructions were generated. Images stored on PACS. All CT scanners at this facility use dose modulation, iterative reconstruction, and/or weight based d osing when appropriate to reduce radiation dose to as low as reasonably achievable (ALARA). [facility]: Dose Right [facility]: CareDose [facility]: Dose Right [facility]: Teradose 4D [facility]: [employer] RADIATION DOSE: CT Rad equipment meets quality standard of care and radiation dose reduction techniq ues were employed. CTDIvol: 53.2 mGy. DLP: 1017 mGy-cm. mGy. LIMITATIONS: None. FINDINGS: VENTRICLES: Normal size and contour. CEREBRUM: No masses. No hemorrhage. No midline shift. No evidence for acute infarction. Normal gra y/white matter differentiation. No areas of low density in the white matter. CEREBELLUM: No masses. No hemorrhage. No alteration of density. No evidence for acute infarction. EXTRAAXIAL SPACES: No fluid collections. No masses. ORBITS AND GLOBE: No intra- or extraconal masses. Normal contour of globe without masses. CALVARIUM: No fracture. PARANASAL SINUSES: No fluid or mucosal thickening. SOFT TISSUES: No mass or hematoma. OTHER: No other significant finding. IMPRESSION: NORMAL BRAIN CT WITHOUT CONTRAST. EVIDENCE OF ACUTE STROKE: NO. COMMENT: Pertinent positive or negative findings of the imaging study reported as a CRITICAL EXAM mallory CARLOS NP at16:10 on 09/16/2019. Category of Critical Exam: Code stroke Quality ID # [id number]: Final reports with documentation of one or more dose reduction techniques (e.g., Au tomated exposure control, adjustment of the mA and/or kV according to patient size, use of iterative reconstruction technique) TECHNICAL DOCUMENTATION: JOB ID: [id number] [employer] All Rights Reserved Reading location - IP/workstation name: [email or web address]
[2019-09-16 16:16] LABS: INTERNATIONAL RATION (INR) 0.95; PROTHROMBIN TIME 12.7 SEC (11.4-15.4)
[2019-09-16 16:17] LABS: PARTIAL THROMBOPLASTIN TIME 30.7 SEC (23.5-35.8)
[2019-09-16 16:31] LABS: ALBUMIN 3.9 g/dL (3.5-5.0); ALKALINE PHOSPHATASE 92 U/L (38-126); ANION GAP 10 (5-19); ASPARTATE AMINO TRANSFERASE 24 U/L (14-36); BILIRUBIN,DIRECT 0.3 mg/dL (0.0-0.4); BILIRUBIN,TOTAL 0.3 mg/dL (0.2-1.3); BLOOD UREA NITROGEN 23 mg/dL (7-20); CARBON DIOXIDE 28 mmol/L (22-30); CHLORIDE 100 mmol/L (98-107); GLUCOSE 100 mg/dL (75-110); POTASSIUM 4.3 mmol/L (3.6-5.0); TOTAL PROTEIN 7.1 g/dL (6.3-8.2)
--- NOTE | 2019-09-16 17:09 | ER Document Report ---
ED NIH Stroke Scale - NIH Stroke Scale When completed:: Before Alteplase *: 1. NIH scale should be completed with appropriate accompanying assessment tools. *: 2. The NIH should reflect what the patient is capable of doing and should not be coached by the clinician. 1a. Level of Consciousness: 0=Alert;keenly responsive -: 1=Drowsy -: 2=Obtunded -: 3=Coma/unresponsive or reflex to noxious stimuli. 1a. Responses: 0 1b. Orientation Questions: a. What month is it? -: b. How old are you? -: 0=Answers both questions correctly. -: 1=Answers one question correctly or patient is intubated or has orotracheal trauma. -: 2=Answers neither question correctly. 1b. Responses: 0 1c. Response to commands: a. Open and close eyes? -: b. Account General Manager and release hand? -: Credit is given despite weakness. Demonstration of task is permitted. Substitute command if hands cannot be used. -: 0=Performs both tasks correctly -: 1=Performs one task correctly -: 2=Performs neither task correctly 1c. Responses: 0 2. Gaze: Establish eye contact and instruct patient to "Follow my finger" -: 0=Normal -: 1=Partial gaze palsy. Gaze is abnormal in one or both eyes, but where forced deviation or total gaze paresis is not present. -: 2=Forced deviation or total gaze paresis. 2. Responses: 0 3. Visual Cornelius: Sees fingers in all four quadrants. -: 0=No visual loss. -: 1=Partial hemianopsia. -: 2=Complete hemianopsia. -: 3=Bilateral hemianopsia (including Cortical blindness) 3. Responses: 0 4. Facial Movement: Instruct patient to: -: a. Show me your teeth -: b. Raise your eyebrows -: c. Close your eyes -: d. Smile -: 0=Normal symmetrical movement -: 1=Minor paralysis (flattened nasolabial fold, asymmetry on smiling). -: 2=Partial paralysis (total or near total paralysis of lower face). -: 3=Complete paralysis of upper and lower face 4. Responses: 1 - left sided 5. Motor functions (left arm): Alternate sides and extend each arm with palms down (90 degrees if sitting or 45 degrees for supine). -: 0=No drift;limb holds for full 10 seconds. -: 1=Drift; limb holds but drifts down before full 10 seconds, but does not hit bed. -: 2=Some effort against gravity; limb cannot get to or maintain position. -: 3=No effort against gravity; limb falls. -: 4=No movement. -: UN=Amputation, joint fusion, explain in comments. 5. Responses (left arm): 0 5. Motor Functions (right arm): Alternate sides and extend each arm with palms down (90 degrees if sitting or 45 degrees for supine). -: 0=No drift;limb holds for full 10 seconds. -: 1=Drift; limb holds but drifts down before full 10 seconds, but does not hit bed. -: 2=Some effort against gravity; limb cannot get to or maintain position. -: 3=No effort against gravity; limb falls. -: 4=No movement. -: UN=Amputation, joint fusion, explain in comments. 5. Responses (right arm): 0 6. Motor Functions (left leg): With patient lying supine, alternate sides and extend each leg (30 degrees always while supine). -: 0=No drift, leg holds position for full 5 seconds -: 1=Drift; leg falls before full 5 seconds but does not hit bed. -: 2=Some effort against gravity, leg falls to bed but some effort against gravity. -: 3=No effort against gravity, leg falls to bed immediately. -: 4=No movement. -: UN=Amputation, joint fusion; explain in comments. 6. Responses (left leg): 0 6. Motor Functions (right leg): With patient lying supine, alternate sides and extend each leg (30 degrees always while supine). -: 0=No drift, leg holds position for full 5 seconds -: 1=Drift; leg falls before full 5 seconds but does not hit bed. -: 2=Some effort against gravity, leg falls to bed but some effort against gravity. -: 3=No effort against gravity, leg falls to bed immediately. -: 4=No movement. -: UN=Amputation, joint fusion; explain in comments. 6. Responses (right leg): 0 7. Limb Ataxia: With eyes open instruct patient to: -: a. "Touch your finger to your nose". -: b. "Touch your heel to your saldaña" -: 0=Absent -: 1=Present in one limb. -: 2=Present in two limbs. -: UN=Amputation or joint fusion; explain in comments. 7. Responses: 0 8. Sensory: Test sensation using pinprick or noxious stimuli. Test as many body parts as possible. -: 0=Normal;no sensory loss -: 1=Mile to moderate sensory loss (patient feels pin prick but is less sharp on affected side). -: 2=Severe or total sensory loss. 8. Responses: 0 9. Best Language: Instruct patient to: -: a. "Describe what you see in this picture." -: b. "Name the items in this picture." -: c. "Read these sentences." -: 0=No aphasia, normal -: 1=Mild to moderate aphasia. -: 2=Severe aphasia -: 3=Mute, global aphasia, no usable speech or auditory comprehension. 9. Responses: 0 10. Articulation, Dysarthia: Instruct patient to: -: "Read these words" or "Repeat these words" -: 0=Normal -: 1=Mild to moderate; patient may slur some words but can be understood without difficulty. -: 2=Severe; patients speech so slurred as to be unintelligible in the absence of dysphasia. -: UN=Intubated or other physical barrier, explain in comments. 10. Responses: 1 11. Extinction or inattention: 0=No abnormality -: 1= Visual, tactile, auditory, spatial, or personal inattention or extinction to bilateral simulation in one or the sensory modalities. -: 2=Profound trista-inattention or trista-inattention to more than one modality; does not recognize own hand. 11. Responses: 0 Total Score: 2
[2019-09-16 17:11] LABS: APPEARANCE,URINE CLOUDY; BILIRUBIN,URINE NEGATIVE (NEGATIVE); COLOR,URINE AMBER; GLUCOSE, URINE 50 mg/dL (NEGATIVE); KETONES,URINE TRACE mg/dL (NEGATIVE); PROTEIN,URINE 30 mg/dL (NEGATIVE); URINE SPECIFIC GRAVITY 1.026
[2019-09-16] MEDS ORDERED: NORMAL SALINE 1000 ML 1,000 ML IV ONE (17:11)
--- NOTE | 2019-09-16 17:14 | ER Document Report ---
ED General - General Chief Complaint: S/S of Possible Stroke Stated Complaint: STROKE LIKE SYMPTOMS Time Seen by Provider: 09/16/19 15:38 Primary Care Provider: ASHLEE HUFF MD [Primary Care Provider] - Follow up as needed Mode of Arrival: Wheelchair TRAVEL OUTSIDE OF THE [place] IN LAST 30 DAYS: No - HPI Exacerbated by: Denies Relieved by: Denies Similar symptoms previously: Yes - 2 times (with previous stroke around Xmas and earlier in August 2019. Recently seen / treated by doctor: Yes - Patient was seen in this ER in mid August 2019 for similar symptoms Notes: 48 year old female with a history of a Recent Stroke (around 2018), HTN, HLD, DM, Hypothyroidism, Cervical Cancer here for left sided facial droop and slurred speech since this morning. The patient is unsure when the symptoms started but her neighbor noticed these symptoms around 730am. The patient thinks the symptoms have improved slightly since when she herself noticed they were going on. The patient denies missing any of her medications (she is on plavix and aspirin) - Related Data Allergies/Adverse Reactions: atropine [From Lomotil] Allergy (Verified 09/16/19 16:01) Hives diphenoxylate [From Lomotil] Allergy (Verified 09/16/19 16:01) Hives Past Medical History - General Information source: Patient - Social History Smoking Status: Current Every Day Smoker Frequency of alcohol use: None Drug Abuse: None Lives with: Alone Family History: None Patient has suicidal ideation: No Patient has homicidal ideation: No - Past Medical History Cardiac Medical History: Reports: Hx Hypercholesterolemia, Hx Hypertension Endocrine Medical History: Reports: Hx Diabetes Mellitus Type 2, Hx Hypothyroi dism. Denies: Hx Graves' Disease Renal/ Medical History: Denies: Hx Ovarian Cysts, Hx Peritoneal Dialysis, Hx Pelvic Inflammatory Disease Malignancy Medical History: Reports: Hx Cervical Cancer - precancerious cells removed GI Medical History: Reports: Hx Gastroesophageal Reflux Disease. Denies: Hx Irritable Bowel, Hx Liver Failure, Hx Pancreatitis, Hx Ulcer Musculoskeletal Medical History: Denies Hx Systemic Lupus Erythematosus Psychiatric Medical History: Denies: Hx Depression Past Surgical History: Reports: Hx Cholecystectomy, Hx Gynecologic Surgery - Immunizations Immunizations up to date: Yes Hx Diphtheria, Pertussis, Tetanus Vaccination: Yes Hx Pneumococcal Vaccination: 05/19/19 Review of Systems - Review of Systems Constitutional: No symptoms reported EENT: No symptoms reported Cardiovascular: No symptoms reported Respiratory: No symptoms reported Gastrointestinal: No symptoms reported Genitourinary: No symptoms reported Female Genitourinary: No symptoms reported Musculoskeletal: No symptoms reported Skin: No symptoms reported Hematologic/Lymphatic: No symptoms reported Neurological/Psychological: Other - left sided facial droop, slurred speech Physical Exam - Vital signs Vitals: Temp Pulse Resp BP Pulse Ox 97.6 F 96 16 100/59 L 99 09/16/19 15:41 09/16/19 15:41 09/16/19 15:41 09/16/19 15:41 09/16/19 15:41 - Notes Notes: GENERAL: Well-appearing, well-nourished and in no acute distress. HEAD: Atraumatic, normocephalic. EYES: Pupils equal round and reactive to light, extraocular movements intact, sclera anicteric, conjunctiva are normal. ENT: TMs normal, nares patent, oropharynx clear without exudates. Moist mucous membranes. NECK: Normal range of motion, supple without lymphadenopathy or JVD. LUNGS: Breath sounds clear to auscultation bilaterally and equal. No wheezes rales or rhonchi. HEART: Regular rate and rhythm without murmurs, rubs or gallops. ABDOMEN: Soft, nontender, normoactive bowel sounds. No guarding, no rebound. No masses appreciated. EXTREMITIES: Normal range of motion, no pitting or edema. No clubbing or cyanosis. NEUROLOGICAL: Slight left sided facial droop and slight slurred speech otherwise cranial nerves II through XII grossly intact. PSYCH: Normal mood, normal affect. SKIN: Warm, Dry, normal turgor, no rashes or lesions noted. Course - Re-evaluation Re-evalutation: 09/16/19 17:20 The patient has a left sided facial droop and some mild slurred speech. The patient noticed the symptoms early this morning around 730am but they were first noticed by her neighbor so there is no telling when the symptoms actually started. The patient has a very low NIH score (2) and she is not a TPA candidate due to the unknown onset of symptoms. I consulted [facility] and they explained to me the patient sounds like she may have M[place]amoya from her recent hospitalization there. The patient missed her Interventional Neurology Appointment at [facility] yesterday. Patient was hypotensive on ER arrival and the current thought is that her recurrent left sided stroke likek symptoms today could be due to hypoperfusion. [facility] requested IV hydration and transfer to their facility for an interventional angiogram for further work up. No need for an further blood thinners at this time as patient is on ASA and Plavix. 09/16/19 17:54 Plan is for transfer to [facility]. No beds available at this time however. 09/17/19 01:15 Patient remains in the ER at the change of my shift. Patient should wait for a bed at [facility] since her Neurologist and Neurosurgeon are there who have a plan for working up her potential Moyamoya - Vital Signs Vital signs: Temp Pulse Resp BP Pulse Ox 98 F 55 L 16 107/71 97 09/16/19 20:58 09/16/19 23:20 09/17/19 00:01 09/17/19 00:01 09/17/19 00:01 - Laboratory Result Diagrams: 09/16/19 16:00 09/16/19 16:00 Laboratory results interpreted by me: 09/16/19 09/16/19 09/16/19 16:00 16:00 16:07 WBC 12.4 H BUN 23 H Creatinine 1.32 H Est GFR ( Amer) 52 L Est GFR (MDRD) Non-Af 43 L POC Glucose 132 H Urine Protein Urine Glucose (UA) Urine Ketones Urine Urobilinogen 09/16/19 09/17/19 16:37 00:28 WBC BUN Creatinine Est GFR ( Amer) Est GFR (MDRD) Non-Af POC Glucose 298 H Urine Protein 30 H Urine Glucose (UA) 50 H Urine Ketones TRACE H Urine Urobilinogen 2.0 H - EKG Interpretation by Ga EKG shows normal: Sinus rhythm, [place], Intervals Rate: Normal Rhythm: NSR Additional EKG results interpreted by me: 09/16/19 17:10 inverted T waves in III, aVR, V1 Discharge - Discharge Clinical Impression: Facial droop Hypotension Qualifiers: Hypotension type: other hypotension type Qualified Code(s): I95.89 - Other hypotension Condition: Stable Disposition: [facility] Referrals: OJEBUOBOH,IBIKUNLE, MD [Primary Care Provider] - Follow up as needed
[2019-09-17] MEDS ORDERED: NICOTINE 21 MG/24 HR PATCH.TD24 TD ONE (00:09)
[2019-09-17] MEDS ORDERED: INSULIN REG, HUMAN 100 UNIT/ML 3 ML VIAL (PYX) SUBCUT ONE (00:31)
[2019-09-17] MEDS ORDERED: INSULIN REG, HUMAN 100 UNIT/ML 3 ML VIAL (PYX) IV ONE (03:07)
--- NOTE | 2019-09-17 09:20 | EKG REPORT ---
SEVERITY:- NORMAL ECG - SINUS RHYTHM : Confirmed by: Farzana Siddiqi 17-Sep-2019 09:18:35
--- NOTE | 2019-09-18 12:29 | ER Document Report ---
Doctor's Note Notes: 09/18/19 12:26 I interviewed this patient and her in room #9. Patient has been accepted at [facility] because of stroke. From her history she had a CVA event on and was taken to this facility. Patient has a history of moyamoya vessel narrowing. Patient also says she has pernicious anemia. She is doing well today as her . She reports she is hoping she can get out soon and see her little dog Danielito / Pooja and she while a dog named Katie has 3 tanks of different fresh water fish. These animals are sick and is not sick. Patient has not started on any new medications or herbal medicines. She denies using any Sudafed or cocaine or any adrenergics. Waiting transfer to another facility
--- NOTE | 2019-09-18 20:58 | ER Document Report ---
Doctor's Note Notes: 09/18/19 20:56 Transport has arrived to take patient to [facility]. This MD examined the patient just prior to her transfer. Currently, she is sitting up in bed and appears to be in no acute distress. She has no focal neurologic findings, heart has a regular rate and rhythm, lungs are clear to auscultation bilaterally and abdomen is soft nontender nondistended.
[2019-09-18 21:02] VITALS: BP 107/69
== END 2019-09-18 21:33 | disposition short-term general hospital (02) ==
LOC: ER 15:35
DX: I63.9 Cerebral infarction, unspecified (principal); R29.702 NIHSS score 2; I95.89 Other hypotension; R29.810 Facial weakness; R47.81 Slurred speech; I10 Essential (primary) hypertension; E78.5 Hyperlipidemia, unspecified; E11.9 Type 2 diabetes mellitus without complications; Z85.41 Personal history of malignant neoplasm of cervix uteri; F17.200 Nicotine dependence, unspecified, uncomplicated
CPT/HCPCS: 93005; 99285; 96360; 96361; 36415; 82962; 84703; 85025; 85610; 85730; 80053; 81001; 71045; 70450; 93010; J7030

== ENCOUNTER 2019-09-27 07:45 | Emergency (ER) | payer BC ==
--- NOTE | 2019-09-27 08:51 | RADIOLOGY REPORT (SQ) ---
EXAM DESCRIPTION: KNEE RIGHT 4 VIEWS COMPLETED DATE/TIME: 09/27/2019 8:26 am REASON FOR STUDY: fall injury COMPARISON: None. NUMBER OF VIEWS: Four views. TECHNIQUE: AP, lateral, and both oblique radiographic images acquired of the right knee. LIMITATIONS: None. FINDINGS: MINERALIZATION: Normal. BONES: No acute fracture or dislocation. No worrisome bone lesions. JOINT: No effusion. SOFT TISSUES: No soft tissue swelling. No radio-opaque foreign body. OTHER: No other significant finding. IMPRESSION: NEGATIVE STUDY OF THE RIGHT KNEE. NO RADIOGRAPHIC EVIDENCE OF ACUTE INJURY. TECHNICAL DOCUMENTATION: JOB ID: [id number] [employer]- All Rights Reserved Reading location - IP/workstation name: [email or web address]
--- NOTE | 2019-09-27 08:53 | RADIOLOGY REPORT (SQ) ---
EXAM DESCRIPTION: ANKLE RIGHT COMPLETE COMPLETED DATE/TIME: 09/27/2019 8:27 am REASON FOR STUDY: fall COMPARISON: None. NUMBER OF VIEWS: Three views. TECHNIQUE: AP, lateral, and oblique radiographic images acquired of the right ankle. LIMITATIONS: None. FINDINGS: MINERALIZATION: Normal. BONES: No acute fracture or dislocation. No worrisome bone lesions. JOINTS: No effusions. SOFT TISSUES: No soft tissue swelling. No foreign body. OTHER: No other significant finding. IMPRESSION: NEGATIVE STUDY OF THE RIGHT ANKLE. NO RADIOGRAPHIC EVIDENCE OF ACUTE INJURY. TECHNICAL DOCUMENTATION: JOB ID: [id number] [employer]- All Rights Reserved Reading location - IP/workstation name: [email or web address]
--- NOTE | 2019-09-27 09:01 | ER Document Report ---
HPI - HPI Time Seen by Provider: 09/27/19 08:08 Pain Level: 5 Context: Patient is a 48-year-old female with a history of TIA, type 2 diabetes who presents emergency department with a chief complaint of right knee and right ankle pain. Patient reports yesterday she was ambulating when her right knee gave out on her. Patient reports that this is never happened before. Patient reports she is not sure how she fell but that her legs were all tangled together. Patient reports knee pain all over. Patient reports she has been able to ambulate since then. Patient denies head injury or loss of consciousness. Patient is on Brilinta. Patient denies any other associated symptoms prior to fall; including SOB, chest pain, dizziness, headache. - REPRODUCTIVE Reproductive: DENIES: : - MUSCULOSKELETAL Musculoskeletal: REPORTS: Extremity pain - Right Leg Past Medical History - General Information source: Patient - Social History Smoking Status: Current Every Day Smoker Frequency of alcohol use: None Drug Abuse: None Lives with: Spouse/Significant other Family History: None Patient has suicidal ideation: No Patient has homicidal ideation: No - Past Medical History Cardiac Medical History: Reports: Hx Hypercholesterolemia, Hx Hypertension Pulmonary Medical History: Reports: None EENT Medical History: Reports: None Neurological Medical History: Reports: None Endocrine Medical History: Reports: Hx Diabetes Mellitus Type 2, Hx Hypothyroidism. Denies: Hx Graves' Disease Renal/ Medical History: Reports: None. Denies: Hx Ovarian Cysts, Hx Peritoneal Dialysis, Hx Pelvic Inflammatory Disease Malignancy Medical History: Reports: Hx Cervical Cancer - precancerious cells removed GI Medical History: Reports: Hx Gastroesophageal Reflux Disease. Denies: Hx Irritable Bowel, Hx Liver Failure, Hx Pancreatitis, Hx Ulcer Musculoskeletal Medical History: Reports None, Denies Hx Systemic Lupus Erythematosus Skin Medical History: Reports None Psychiatric Medical History: Reports: None Denies: Hx Depression Traumatic Medical History: Reports: None Infectious Medical History: Reports: None Past Surgical History: Reports: Hx Cholecystectomy, Hx Gynecologic Surgery - Immunizations Immunizations up to date: Yes Hx Diphtheria, Pertussis, Tetanus Vaccination: Yes Hx Pneumococcal Vaccination: 05/19/19 Vertical Provider Document - CONSTITUTIONAL Agree With Documented VS: Yes Exam Limitations: No Limitations General Appearance: No Apparent Distress - INFECTION CONTROL TRAVEL OUTSIDE OF THE [place] IN LAST 30 DAYS: No - HEENT HEENT: Atraumatic, Normal ENT Exam, Normocephalic, PERRLA - NECK Neck: Normal Inspection - RESPIRATORY Respiratory: Breath Sounds Normal, No Respiratory Distress - CARDIOVASCULAR Cardiovascular: Regular Rate, Regular Rhythm - GI/ABDOMEN Gastrointestinal: Abdomen Soft, Abdomen Non-Tender, Normal Bowel Sounds - MUSCULOSKELETAL/EXTREMETIES Musculoskeletal/Extremeties: FROM Notes: Patient has diffuse tenderness to the anterior, posterior, lateral and medial right knee. There is no obvious deformity, erythema. No ecchymosis. Slight edema noted diffusely to right knee. Patient has point tenderness to the right lateral malleolus. There is no ecchymosis, edema, erythema or deformity. Patient has a +2 palpable dorsalis pedis and posterior tibial pulse. - NEURO Level of Consciousness: Awake, Alert, Appropriate Course - Re-evaluation Re-evalutation: 09/27/19 09:20 No acute bony abnormality noted on x-ray. We will place the patient in knee immobilizing splint. I did reiterate precautions using crutches as the patient fell and this can increase her risk for falls. Patient reports she is used crutches in the past. Informed the patient she is not feeling better in the next 2 weeks to follow-up with orthopedics. - Vital Signs Vital signs: Temp Pulse Resp BP Pulse Ox 98.0 F 115 H 18 115/74 96 09/27/19 07:49 09/27/19 07:49 09/27/19 07:49 09/27/19 07:49 09/27/19 07:49 - Diagnostic Test Radiology reviewed: Reports reviewed Radiology results interpreted by me: 09/27/19 08:59 Knee X-Ray 09/27/19 08:00 IMPRESSION: NEGATIVE STUDY OF THE RIGHT KNEE. NO RADIOGRAPHIC EVIDENCE OF ACUTE INJURY. Ankle X-Ray 09/27/19 08:04 IMPRESSION: NEGATIVE STUDY OF THE RIGHT ANKLE. NO RADIOGRAPHIC EVIDENCE OF ACUTE INJURY. Discharge - Discharge Clinical Impression: Fall Qualifiers: Encounter type: initial encounter Qualified Code(s): W19.XXXA - Unspecified fall, initial encounter Right knee pain Qualifiers: Chronicity: acute Qualified Code(s): M25.561 - Pain in right knee Right ankle pain Qualifiers: Chronicity: acute Qualified Code(s): M25.571 - Pain in right ankle and joints of right foot Condition: Stable Disposition: HOME, SELF-CARE Instructions: Dennis Wrap ([facility]), Ankle Stirrup Splint ([facility]), Use of Crutches ([facility]), Ice & Elevation ([facility]), Knee Immobilizing Splint ([facility]), Sprained Ankle ([facility]), Sprained Knee ([facility]) Additional Instructions: Today was in the emergency department after a fall. We did obtain an x-ray of your right knee and your right ankle. There is no acute bony abnormality such as a fracture or dislocation. Your pain is likely due to a sprain. This can take weeks to heal. We are placing you in a knee immobilizing device for comfort. Please remove this multiple times per day. You are also being placed in an dennis wrap to your right ankle. You have been given an additional Dennis wrap if the knee immobilizing device is not working for you so you can place this on your knee. Please be very careful using the crutches due to increased risk for fall. Please ice and elevate the knee and ankle. Use Tylenol as needed for pain. Please rest over the next few days. Referrals: ASHLEE HUFF MD [Primary Care Provider] - Follow up as needed
[2019-09-27 11:13] VITALS: BP 118/76
== END 2019-09-27 09:30 | disposition home or self-care (01) ==
LOC: ER 07:45
DX: M25.561 Pain in right knee (principal); M25.571 Pain in right ankle and joints of right foot; M25.461 Effusion, right knee; W19.XXXA Unspecified fall, initial encounter; Y92.009 Unspecified place in unspecified non-institutional (private) residence as the place of occurrence of the external cause; F17.200 Nicotine dependence, unspecified, uncomplicated; I10 Essential (primary) hypertension; E11.9 Type 2 diabetes mellitus without complications; Z79.02 Long term (current) use of antithrombotics/antiplatelets; Z86.73 Personal history of transient ischemic attack (TIA), and cerebral infarction without residual deficits
CPT/HCPCS: 99283

== ENCOUNTER → 2020-01-26 | Outpatient (CLI) | payer BC ==
--- NOTE | 2020-01-26 10:54 | RADIOLOGY REPORT (SQ) ---
EXAM DESCRIPTION: MRI HEAD WITHOUT IMAGES COMPLETED DATE/TIME: 01/26/2020 10:35 am REASON FOR STUDY: HEMIPLGA FOLLOWING CEREBRAL INFRC AFF RIGHT DOMINANT SIDE I69.351 HEMIPLGA FOLLOW ING CEREBRAL INFRC AFF RIGHT DOMINANT COMPARISON: 08/29/2019 TECHNIQUE: Multiplanar imaging includes non-contrasted T1, T2, FLAIR, and Diffusion with ADC map seq uences. Images stored on PACS. LIMITATIONS: None. FINDINGS: ANATOMY: No anomalies. Normal vascular flow voids. Pituitary fossa normal. CSF SPACES: Normal in size and contour. No hemorrhage. CEREBRUM: Moderate size old infarct right MCA territory lizama radiata and internal capsule. No evid ence of acute infarct, mass, hemorrhage or extra-axial fluid collection. POSTERIOR FOSSA: No signal alteration. No hemorrhage. No edema, masses or mass effect. Internal devin tory canals, cerebello-pontine angles, mastoids normal. DIFFUSION: T2 shine through. Negative for acute or sub-acute infarction. ORBITS: No masses. Globes normal. PARANASAL SINUSES: No fluid levels. Mucosa normal. OTHER: No other significant finding. IMPRESSION: Old right MCA territory infarct. EVIDENCE OF ACUTE STROKE: NO. TECHNICAL DOCUMENTATION: JOB ID: [id number] 2010 [employer]- All Rights Reserved Reading location - IP/workstation name: [email or web address]
--- NOTE | 2020-01-26 12:24 | RADIOLOGY REPORT (SQ) ---
EXAM DESCRIPTION: CERV SP 3 VIEW OR LESS IMAGES COMPLETED DATE/TIME: 01/26/2020 10:53 am REASON FOR STUDY: M54.2 CERVICALGIA I69.351 HEMIPLEGIA FOLLOWING CEREBRAL INFRC AFF RIGHT DOMINANT COMPARISON: None. NUMBER OF VIEWS: Three views. TECHNIQUE: AP, lateral and odontoid radiographic images acquired of the cervical spine. LIMITATIONS: None. FINDINGS: MINERALIZATION: Normal. ALIGNMENT: Anatomic. VERTEBRAE: Vertebral bodies of normal height. DISCS: There is narrowing of the C6-7 disc with marginal osteophytes. HARDWARE: None in the spine. SOFT TISSUES: No masses or calcifications. Lung apices clear. OTHER: No other significant finding. IMPRESSION: C6-7 degenerative disc disease with spondylosis. No acute finding. TECHNICAL DOCUMENTATION: JOB ID: [id number] 2010 [employer]- All Rights Reserved Reading location - IP/workstation name: [email or web address]
== END ==
LOC: RAD 09:24
PROVIDERS: ATTEND Internal Medicine
DX: M54.2 Cervicalgia (principal)
CPT/HCPCS: 70551; 72040

== ENCOUNTER 2020-05-12 17:19 | Emergency (ER) | payer SELFPAY ==
[2020-05-12] MEDS ORDERED: NORMAL SALINE 1000 ML 1,000 ML IV ONE (18:08)
[2020-05-12] MEDS ORDERED: ONDANSETRON HCL INJ/PF 4 MG/2 ML SDV IV ONE (18:08)
--- NOTE | 2020-05-12 18:18 | ER Document Report ---
ED GI/ - General TRAVEL OUTSIDE OF THE [place] IN LAST 30 DAYS: No <LAWRENCE LEA - Last Filed: 05/12/20 19:58> <JAN RODRIGUEZ - Last Filed: 05/12/20 21:57> - General Chief Complaint: Nausea/Vomiting/Diarrhea Stated Complaint: NAUSEA/VOMITING/DIARRHEA Time Seen by Provider: 05/12/20 17:55 Primary Care Provider: ASHLEE HUFF MD [Primary Care Provider] - Follow up tomorrow Notes: CHIEF COMPLAINT: Vomiting and elevated blood glucose HPI: 49-year-old poorly controlled diabetic female presenting for multiple episodes of vomiting today. Brought in by EMS. Patient states she does not think it is COVID because she had a catheterization through the right wrist at [facility] 2 weeks ago that was normal. Patient states that her sugar was too high at the time and they were trying to do an angiogram but could not complete it. She states she did have a COVID test done that was negative and she has not been out of her house since she got home. Patient denies abdominal pain states she just cannot stop vomiting today. No fevers ROS: See HPI - all other systems were reviewed and are otherwise negative Constitutional: no fever Eyes: no drainage, no blurred vision ENT: no runny nose, no sore throat Cardiovascular: no chest pain Resp: no SOB, no cough GI: + vomiting, no diarrhea, no abdominal pain : no dysuria Integumentary: no rash Allergy: no hives Musculoskeletal: no extremity pain or swelling Neurological: no numbness/tingling, no weakness MEDICATIONS: I agree with the patient medications as charted by the RN. ALLERGIES: I agree with the allergies as charted by the RN. PAST MEDICAL HISTORY/PAST SURGICAL HISTORY: Reviewed and agree as charted by RN. SOCIAL HISTORY: Reviewed and agree as charted by RN. FAMILY HISTORY: No significant familial comorbid conditions directly related to patient complaint EXAM: Reviewed vital signs as charted by RN. CONSTITUTIONAL: Alert and oriented and responds appropriately to questions. Well-appearing; well-nourished HEAD: Normocephalic; atraumatic EYES: PERRL; Conjunctivae clear, sclerae non-icteric ENT: normal nose; no rhinorrhea; moist mucous membranes; pharynx without lesions noted, no uvula edema or deviation, no tonsillar hypertrophy, phonation normal NECK: Supple without meningismus; non-tender; no cervical lymphadenopathy, no masses CARD: Mildly tachycardic; no murmurs, no clicks, no rubs, no gallops; symmetric distal pulses RESP: Normal chest excursion without splinting or tachypnea; breath sounds clear and equal bilaterally; no wheezes, no rhonchi, no rales, pulse oximetry 97% on room air not hypoxic ABD/GI: Normal bowel sounds; non-distended; soft, non-tender, no rebound, no guarding; no palpable organomegaly or masses. BACK: The back appears normal and is non-tender to palpation, there is no CVA tenderness EXT: Normal ROM in all joints; non-tender to palpation; no cyanosis, no effusions, no edema SKIN: Normal color for age and race; warm; dry; good turgor; no acute lesions noted NEURO: Moves all extremities equally; Motor and sensory function intact PSYCH: The patient's mood and manner are appropriate. Grooming and personal hygiene are appropriate. MDM: 49-year-old female presenting for vomiting today. No abdominal pain on exam. Will check urine and screening labs she is a poorly controlled diabetic states her last A1c was 14. Patient states she normally takes Lantus 50 units in the morning 50 units in the evening. Did take her Lantus this morning. (LAWRENCE LEA) - Related Data Allergies/Adverse Reactions: atropine [From Lomotil] Allergy (Verified 09/16/19 16:01) Hives diphenoxylate [From Lomotil] Allergy (Verified 09/16/19 16:01) Hives latex Allergy (Verified 09/27/19 07:55) Past Medical History - Social History Family History: None - Past Medical History Cardiac Medical History: Reports: Hx Hypercholesterolemia, Hx Hypertension Endocrine Medical History: Reports: Hx Diabetes Mellitus Type 2, Hx Hypothyroidism. Denies: Hx Graves' Disease Renal/ Medical History: Denies: Hx Ovarian Cysts, Hx Peritoneal Dialysis, Hx Pelvic Inflammatory Disease Malignancy Medical History: Reports: Hx Cervical Cancer - precancerious cells removed GI Medical History: Reports: Hx Gastroesophageal Reflux Disease. Denies: Hx Irritable Bowel, Hx Liver Failure, Hx Pancreatitis, Hx Ulcer Musculoskeletal Medical History: Denies Hx Systemic Lupus Erythematosus Psychiatric Medical History: Denies: Hx Depression Past Surgical History: Reports: Hx Cholecystectomy, Hx Gynecologic Surgery - Immunizations Immunizations up to date: Yes Hx Diphtheria, Pertussis, Tetanus Vaccination: Yes Hx Pneumococcal Vaccination: 05/19/19 <LAWRENCE LEA - Last Filed: 05/12/20 19:58> - General Information source: Patient - Social History Smoking Status: Unknown if Ever Smoked Lives with: Family Family History: Reviewed & Not Pertinent <JAN RODRIGUEZ - Last Filed: 05/12/20 21:57> Physical Exam - Vital signs Vitals: Temp Pulse Resp BP Pulse Ox 98.4 F 108 H 20 115/91 H 98 05/12/20 17:29 05/12/20 17:29 05/12/20 17:29 05/12/20 17:29 05/12/20 17:29 Course - Laboratory Result Diagrams: 05/12/20 18:35 05/12/20 18:35 <LAWRENCE LEA - Last Filed: 05/12/20 19:58> - Laboratory Result Diagrams: 05/12/20 18:35 05/12/20 18:35 <JAN RODRIGUEZ - Last Filed: 05/12/20 21:57> - Re-evaluation Re-evalutation: 05/12/20 19:25 Patient CO2 level is normal.. Mildly hyperglycemic. Lower suspicion for DKA at this time. We will continue IV hydration. If patient's lab work and VBG confirm hyperglycemia without DKA will p.o. challenge anticipate discharge 05/12/20 19:27 EKG sinus rhythm with a heart rate of 93 MI 156 QT 356 QTC 443. Interpreted by emergency department physician. Normal EKG without other ectopy noted. 05/12/20 19:58 report to oncoming shift will follow and disposition (LAWRENCE LEA) 05/12/20 21:55 Venous blood gas is unremarkable. I reevaluated patient at bedside, she has tolerated p.o., she drank half a water bottle, she did receive IV fluids. Work- up shows dehydration but does not show diabetic ketoacidosis. Patient has no complaints on my evaluation, she asks if she can be discharged, she requests Phenergan for nausea at home in case she needs it, she denies any current comp laints. Discussed follow-up and return precautions. Patient is understanding and agreement. Stable and well-appearing at time of discharge. (JAN RODRIGUEZ) - Vital Signs Vital signs: Temp Pulse Resp BP Pulse Ox 98.3 F 91 16 150/83 H 98 05/12/20 21:18 05/12/20 21:18 05/12/20 21:18 05/12/20 21:18 05/12/20 21:18 - Laboratory Laboratory results interpreted by me: 05/12/20 05/12/20 05/12/20 18:35 18:35 18:35 WBC 14.2 H RBC 5.30 H RDW 14.3 H Absolute Neuts (auto) 8.4 H Chloride 97 L Glucose 297 H Calcium 10.5 H Alkaline Phosphatase 136 H Total Protein 8.5 H Urine Protein 30 H Urine Glucose (UA) >=500 H Urine Ketones 20 H Discharge <LAWRENCE LEA - Last Filed: 05/12/20 19:58> <JAN RODRIGUEZ - Last Filed: 05/12/20 21:57> - Discharge Clinical Impression: Hyperglycemia Vomiting Qualifiers: Vomiting type: unspecified Vomiting Intractability: non-intractable Nausea presence: with nausea Qualified Code(s): R11.2 - Nausea with vomiting, unspecified Condition: Stable Disposition: HOME, SELF-CARE Additional Instructions: Your testing does not show ketoacidosis, you have been treated for dehydration, you can take Phenergan if needed for nausea, continue your medications, follow closely with your primary care provider for additional evaluation and management. Return if you worsen including uncontrolled vomiting, fever, dizziness, or if something is not right. Prescriptions: Promethazine HCl [Phenergan 25 mg Tablet] 25 mg PO Q6H PRN #15 tablet PRN Reason: Referrals: ASHLEE HUFF MD [Primary Care Provider] - Follow up tomorrow
[2020-05-12 19:05] LABS: ABSOLUTE BASOPHILS # (AUTO) 0.1 10^3/uL (0.0-0.2); ABSOLUTE EOSINOPHILS # (AUTO) 0.1 10^3/uL (0.0-0.6); ABSOLUTE LYMPHOCYTES (AUTO) 4.2 10^3/uL (0.5-4.7); ABSOLUTE MONOCYTES (AUTO) 1.3 10^3/uL (0.1-1.4); ABSOLUTE NEUT (AUTO) 8.4 10^3/uL (1.7-8.2); EOSINOPHILS % (AUTO) 0.9 % (0-6); HEMATOCRIT 43.3 % (36.0-47.0); HEMOGLOBIN 14.5 g/dL (12.0-15.5); LYMPHOCYTES % (AUTO) 29.7 % (13-45); MEAN CORPUSCULAR HEMOGLOBIN 27.5 pg (27.0-33.4); MEAN CORPUSCULAR HGB CONC 33.6 g/dL (32.0-36.0); MEAN CORPUSCULAR VOLUME 82 fl (80-97); MONOCYTES % (AUTO) 8.8 % (3-13); PLATELET COUNT 248 10^3/uL (150-450); RED CELL DISTRIBUTION WIDTH 14.3 % (11.5-14.0); SEGMENTED NEUTROPHILS % (AUTO) 59.6 % (42-78); TOTAL CELLS COUNTED % (AUTO) 100 %; WHITE BLOOD COUNT 14.2 10^3/uL (4.0-10.5)
[2020-05-12 19:11] LABS: APPEARANCE,URINE SLIGHTLY-CLOUDY; BILIRUBIN,URINE NEGATIVE (NEGATIVE); COLOR,URINE YELLOW; GLUCOSE, URINE >=500 mg/dL (NEGATIVE); KETONES,URINE 20 mg/dL (NEGATIVE); LEUKOCYTE ESTERASE,URINE NEGATIVE (NEGATIVE); NITRITE,URINE NEGATIVE (NEGATIVE); PROTEIN,URINE 30 mg/dL (NEGATIVE); UROBILINOGEN,URINE NEGATIVE mg/dL (<2.0)
[2020-05-12 19:20] LABS: ALBUMIN 4.9 g/dL (3.5-5.0); ALKALINE PHOSPHATASE 136 U/L (38-126); ANION GAP 16 (5-19); ASPARTATE AMINO TRANSFERASE 22 U/L (14-36); BILIRUBIN,DIRECT 0.4 mg/dL (0.0-0.4); BILIRUBIN,TOTAL 0.8 mg/dL (0.2-1.3); BLOOD UREA NITROGEN 19 mg/dL (7-20); CALCIUM 10.5 mg/dL (8.4-10.2); CARBON DIOXIDE 26 mmol/L (22-30); CHLORIDE 97 mmol/L (98-107); GLUCOSE 297 mg/dL (75-110); POTASSIUM 3.9 mmol/L (3.6-5.0); TOTAL PROTEIN 8.5 g/dL (6.3-8.2)
[2020-05-12 20:01] LABS: VENOUS BLOOD BASE EXCESS 1.8 mmol/L; VENOUS BLOOD HCO3 26.4 mmol/L (20-32); VENOUS BLOOD PCO2 41.5 mmHg (35-63); VENOUS BLOOD PH 7.42 (7.30-7.42)
[2020-05-12 21:32] VITALS: BP 150/83
--- NOTE | 2020-05-12 22:04 | EKG REPORT ---
SEVERITY:- NORMAL ECG - SINUS RHYTHM : Confirmed by: Aura Bailey MD 12-May-2020 22:03:40
== END 2020-05-12 22:06 | disposition home or self-care (01) ==
LOC: ER 17:19
DX: E11.65 Type 2 diabetes mellitus with hyperglycemia (principal); R11.2 Nausea with vomiting, unspecified; I10 Essential (primary) hypertension; Z79.4 Long term (current) use of insulin; Z88.8 Allergy status to other drugs, medicaments and biological substances; Z91.040 Latex allergy status
CPT/HCPCS: 93005; 99284; 96361; 96374; 36415; 82010; 85025; 80053; 81001; 84484; 82803; 93010; J2405; J7030